=== PATIENT | female | born 1990 | race Caucasian/White ===

== ENCOUNTER 2018-08-20 18:56 | Emergency (ER) | payer MEDICAID, SELFPAY ==
[2018-08-20 19:00] VITALS: BP 115/72; PULSE 88; RESP 20; TEMP 37; O2SAT 99
--- NOTE | 2018-08-20 19:30 | DI.RAD_ITS ---
SYMPTOMS/DIAGNOSIS: ? FOREIGN BODY IN FOOT PAD, STEPPED ON GLASS LEFT FOOT: Three views. No bone or joint abnormality is identified. No radiopaque foreign bodies are present. IMPRESSION: Negative examination.
--- NOTE | 2018-08-20 20:01 | DI.VRAD_ITS ---
EXAM: XR Left Foot Complete, 3 or more Views EXAM DATE/TIME: 08/20/2018 7:17 PM CLINICAL HISTORY: 27 years old, female; Pain; Foot; Left; Patient HX: Stepped on glass on monday and removed glass but now a red line from bottom of foot up through instep. ; Additional info: Arrow on lateral shows where PT removed glass. TECHNIQUE: XR Left foot 3 or more views. COMPARISON: No relevant prior studies available. FINDINGS: Normal alignment. No acute fracture or dislocation. No evidence of osteomyelitis. No radiopaque foreign bodies. IMPRESSION: No acute findings. Dictated and Authenticated by: Nazario Nobles MD. Ordering:MARY Salamanca MD
[2018-08-20] MEDS: LEVOFLOXACIN 500 MG, LEVOFLOXACIN 250 MG 750 MG PO (20:38)
[2018-08-20] MEDS: Cephalexin 500 MG CAP PO (20:38)
--- NOTE | 2018-08-20 20:53 | W.ED.GENAD ---
Discharge Plan Disposition Patient Disposition: HOME Condition: Good Discharge Details Chief Complaint: Cellulitis Clinical Impression: Cellulitis Primary Care Provider: Manuel Bean ED Provider: Cheikh Ayala Home Meds and New Rx's Prescriptions: New cephalexin [Keflex] 500 mg capsule 500 mg PO QID 7 Days Qty: 28 RF: 0 levofloxacin 750 mg tablet 750 mg PO DAILY Qty: 7 RF: 0 No Action levalbuterol tartrate [Xopenex HFA] 15 GM HFA aerosol inhaler 2 puff Inhalation PRN PRNQty: 1 RF: 1 acetaminophen [Tylenol Extra Strength] 500 MG tablet 500 mg PO PRN PRNRF: 0 Ibuprofen 800 MG Tablet 800 mg PO Q8H PRN (Reason: Pain) Qty: 18 RF: 0 Discharge Instructions Instructions: Cellulitis (ED) Additional Instructions: Please take the antibiotic as directed. If you notice any worsening of the redness or increase in your streaking or fever please return immediately. If you notice any pain in your tendons, joints, or ligaments please stop taking the levofloxacin immediately, and consult your primary care provider. If you notice any worsening of your symptoms, or any new symptoms such as vomiting, diarrhea, fever, chills, shortness of breath, chest pain, numbness, weakness, or fainting , please return immediately to the emergency department for reevaluation. Please follow up with your primary care provider as soon as possible for reassessment and reevaluation. As always, it was a pleasure participating in your medical care today. Referrals: Manuel Bean MD [Primary Care Provider] - Discharge Data Discharge Date/Time-TO BE ENTERED AT DEPARTURE: 08/20/18 21:02 Medical Decision Making Is a 27-year-old female whose tetanus is up-to-date who presents today for red streaking in her left foot. She has no red flag risk factors of diabetes or HIV. 3 days ago she stepped on a small piece of glass which she was able to remove, today she noticed a small amount of red streaking that is rapidly progressing towards her ankle. No systemic symptoms of fever, vital signs are stable, and reassuring. Physical exam demonstrates no abscess, fluctuance, or signs of significant infection. With a mild to moderate erythema and a streaking-like fashion we did get a chest x-ray to rule out foreign body that is retained, x-rays negative and shows no evidence of retained foreign body. With a concern for an infectious etiology from the initial glass that she stepped on I will start the patient on antibiotics. Up-to-date does recommend both tianna quinolone administration as well as good gram-positive coverage. We will give Keflex and Levaquin. I do not feel that her signs or symptoms are suggestive of a MRSA infection, and I do not feel that additional coverage with clindamycin and Bactrim is indicated at this time. Had a long discussion with the patient regarding red flags for which to return and a low threshold for return for worsening of her symptoms and she understands. Also discussed the importance of extremely close follow-up and she understands. She will be given her first dose here in the ED tonight, and a prescription to go home. I have extensively reviewed the treatment plan and discharge instructions with the patient and their family. I have addressed all patient concerns at this time. The patient and family was made aware of what symptoms to monitor for that would warrant a return to the emergency department. Discussed the plan with the patient and family, they demonstrate verbal understanding and agreement with our assessment and plan at this time. TECHNIQUE: XR Left foot 3 or more views. COMPARISON: No relevant prior studies available. FINDINGS: Normal alignment. No acute fracture or dislocation. No evidence of osteomyelitis. No radiopaque foreign bodies. IMPRESSION: No acute findings. Dictated and Authenticated by: Nazario Nobles MD. [facility] General Date/Time Provider Initiated Documentation: 08/20/18 19:16. [facility] Narrative: This is a 27-year-old female with no significant past medical history who presents today for evaluation of left foot redness. The patient states that 2 days ago she was walking barefoot her entryway when she stepped on a very small thin piece of glass. She states that she was able to remove the glass completely with tweezers and had no significant pain, however this afternoon she noticed a small amount of redness near where the glass had stuck her foot, and by this evening the redness had spread in a streak-like fashion up her leg to her ankle. She has very mild pain. She denies any systemic symptoms of fever. She does admit to a mild chill though. She denies any significant pain around the ankle or foot. She denies any pain with ambulation. She denies any history of diabetes or HIV. She denies any other modifying factors at this time. Patient states that immunizations are up-to-date, last tetanus was administered in 2013. Related Data Home Medications Medication Instructions Recorded Confirmed levalbuterol tartrate [Xopenex HFA] 2 puff INHALATION PRN PRN #1 05/26/14 08/20/18 inhaler Ibuprofen 800 mg PO Q8H PRN #18 tablet 01/19/17 08/20/18 acetaminophen [Tylenol Extra 500 mg PO PRN PRN 01/19/17 08/20/18 Strength] cephalexin [Keflex] 500 mg PO QID 7 Days #28 cap 08/20/18 levofloxacin 750 mg PO DAILY #7 tab 08/20/18 Previous Rx's Medication Instructions Recorded Ibuprofen 800 mg PO Q8H PRN #18 tablet 01/19/17 cephalexin [Keflex] 500 mg PO QID 7 Days #28 cap 08/20/18 levofloxacin 750 mg PO DAILY #7 tab 08/20/18 Allergies Allergy/AdvReac Type Severity Reaction Status Date / Time codeine [Codeine] Allergy Severe THROAT Unverified 08/20/18 19:03 SWELLS, TROUBLE BREATHING oxycodone AdvReac Intermediate Nausea Unverified 08/20/18 19:03 General Stated Complaint: Cellulitis JEANNINE: 3 Review of Systems Review of Systems All systems reviewed & are unremarkable except as noted in HPI and below PFSH Medical History Asthma Migraine Seasonal allergic rhinitis Surgical History section (06/18/14) Family History Other Personal history of malignant neoplasm Social History Smoking/Tobacco Use Status: Current every day Exam Narrative Exam Narrative: 1.Const: Well-nourished, Well-developed, appearing stated age 2.Eyes: PERRL, no conjunctival injection, and symmetrical lids. 3.ENT: Atraumatic external nose and ears. Moist MM. Neck: Symmetric, trachea midline, No thyromegaly. 4.CVS: +S1/S2, No murmurs or gallops. Peripheral pulses 2+ and equal in all extremities. Brisk capillary refill in all extremities. 5.RESP: Unlabored respiratory effort. Clear to auscultation bilaterally. No wheezes rales or rhonchi 6.GI: Soft, Nontender/Nondistended, No hepatosplenomegaly. No guarding or rebound. 7.MSK: Normocephalic/Atraumatic, Extremities w/o deformity or ttp No cyanosis or clubbing, Normal movement of all extremities. No evidence of retained foreign body, no evidence of significant swelling in the foot. No tenderness on palpation. 8.Skin: Warm, Dry. No rashes or lesions. There is a very small thin erythematous line streaking from the base of the patient's left foot, up around the medial aspect towards the ankle. It stops just distal to the ankle. No firmness, fluctuance, or signs of abscess. 9.Neuro: carpenter inspector II-XII grossly intact. Sensation grossly intact, no focal neurologic deficits. 10.Psych: (AAO) x3. Appropriate mood and affect Course Vital Signs Temperature 37.0 C 08/20/18 19:00 Pulse 88 08/20/18 19:00 Respiratory Rate 20 08/20/18 19:00 Blood Pressure 115/72 08/20/18 19:00 Pulse Oximetry 99 08/20/18 19:00 Temperature 37.0 C 08/20/18 19:00 Temperature Source Temporal Artery Scan 08/20/18 19:00 Pulse 88 08/20/18 19:00 Respiratory Rate 20 08/20/18 19:00 Respiratory Effort Non-Labored 08/20/18 19:00 Blood Pressure 115/72 08/20/18 19:00 Pulse Oximetry 99 08/20/18 19:00 Oxygen Delivery Method Room Air 08/20/18 19:00 Oxygen Flow Rate 0 08/20/18 19:00 Pain Level 4 08/20/18 19:00
== END 2018-08-20 21:02 | disposition home or self-care (01) ==
PROVIDERS: Emergency Provider Student in an Organized Health Care Education/Training Program; PCP General Practice
DX: L03.116 Cellulitis of left lower limb (principal)
CPT/HCPCS: 99283; 73630

== ENCOUNTER 2019-08-14 00:59 | Emergency (ER) | payer MEDICAID, SELFPAY ==
[2019-08-14 01:04] VITALS: BP 126/92; PULSE 78; RESP 16; TEMP 36.6; O2SAT 100
--- NOTE | 2019-08-14 01:17 | ED.GENADUL_ITS ---
Discharge Plan Disposition Patient Disposition: HOME Condition: Good Discharge Details Chief Complaint: Abd Prob Clinical Impression: Gastritis Primary Care Provider: Manuel Bean ED Provider: Cheikh Ayala Home Meds and New Rx's Prescriptions: New sucralfate [Carafate] 1 gram tablet 1 gm PO QACHS Qty: 90 RF: 0 pantoprazole [Protonix] 40 mg tablet,delayed release (DR/EC) 40 mg PO DAILY Qty: 90 RF: 0 Discharge Instructions Instructions: Gastritis (ED) Additional Instructions: At this time I suspect her symptoms are from mild gastric ulcer or gastritis. Please use Pepto-Bismol or Maalox as needed. Please take the Carafate and Protonix to help with the stomach ulcers. Please avoid any spicy foods, citrus- based products, or tomato-based products. If you notice any worsening of your symptoms, or any new symptoms such as vomiting, diarrhea, fever, chills, shortness of breath, chest pain, numbness, weakness, or fainting , please return immediately to the emergency department for reevaluation. Please follow up with your primary care provider as soon as possible for reassessment and reevaluation. As always, it was a pleasure participating in your medical care today. Referrals: Manuel Bean MD [Primary Care Provider] - Medical Decision Making Is a pleasant 28-year-old female presents with epigastric pain started earlier today. Occasionally it would come and go and when it does get worse it radiates to her chest which results in a chest heaviness and what she describes as a notable shortness of breath. It gets better on its own. She states that it feels similar to when she had her gallbladder problems in the past however she has since had a cholecystectomy. She demonstrates no red flags concerning for PE. Vital signs are stable. Get a screening d-dimer, EKG, chest x-ray, give GI cocktail. I suspect symptoms are likely from mild gastric irritation, lung pathology unlikely. ACS unlikely. Pancreatitis is on the differential but lower. No recent alcohol use. 2:24 AM D-dimer negative. The remainder of her laboratory work-up is unremarkable. No white count, lipase normal, transaminases normal. Troponin normal, proBNP normal. On reassessment the patient states that her symptoms are nearly completely resolved specifically after that GI cocktail. She feels much better. I suspect that her symptoms are likely from mild gastritis or gastric ulcer. Symptoms are inconsistent with ACS or PE. This time will we will give antacid medication for home use, recommend appropriate diet and close follow-up. Discussed red flags which to return. I have extensively reviewed the treatment plan and discharge instructions with the patient. I have addressed all patient concerns at this time. The patient was made aware of what symptoms to monitor for that would warrant a return to the emergency department. Discussed the plan with the patient, they demonstrate verbal understanding and agreement with our assessment and plan at this time. EKG 1: 18 Rate 84, intervals normal, sinus rhythm, no significant ST elevations or depre ssions, inverted T wave is present in V1. No evidence of STEMI. No other abnormalities. FINDINGS: Lungs: Unremarkable. No consolidation. Pleural space: Unremarkable. No pleural effusion. No pneumothorax. Heart/Mediastinum: Unremarkable. No cardiomegaly. Bones/joints: Unremarkable. IMPRESSION: No acute findings. Thank you for allowing us to participate in the care of your patient. Dictated and Authenticated by: Shashank Peguero MD 08/14/2019 1:45 AM Eastern Time ([place] & [place]) HPI General Date/Time Provider Initiated Documentation: 08/14/19 01:02 . HPI Narrative: This is a 28-year-old female with no significant past medical history who presents today for evaluation of epigastric pain and chest tightness. Patient states that starting earlier today she had mild epigastric irritation which she describes as an achy-like sensation however throughout the day the pain seems to come and gone significantly worsening causing which she describes as a notable chest heaviness, tightness and shortness of breath. This seems to go away without any activity in particular. She denies any exertional component. She has been eating some food today which is not aggravated or relieved her symptoms. States that she has had some pain similar to this in the past when she had her gallstones, however she has had a cholecystectomy. She denies any other complaints at this time. No other modifying factors. Denies PE risk factors such as recent long car rides, immobilization, recent surgery, prior history of DVT or PE, family history of PE or DVT, morbid obesity, exogenous estrogen, hemoptysis, history of cancer. Related Data Home Medications Medication Instructions Recorded Confirmed pantoprazole [Protonix] 40 mg PO DAILY #90 tab 08/14/19 sucralfate [Carafate] 1 gm PO QACHS #90 tab 08/14/19 Previous Rx's Medication Instructions Recorded pantoprazole [Protonix] 40 mg PO DAILY #90 tab 08/14/19 sucralfate [Carafate] 1 gm PO QACHS #90 tab 08/14/19 Allergies Allergy/AdvReac Type Severity Reaction Status Date / Time codeine [Codeine] Allergy Severe THROAT Unverified 08/14/19 01:06 SWELLS, TROUBLE BREATHING oxycodone AdvReac Intermediate Nausea Unverified 08/14/19 01:06 General Stated Complaint: Abd Prob JEANNINE: 3 Review of Systems All systems reviewed & are unremarkable except as noted in HPI and below PFSH Medical History (Updated 07/21/14 @ 10:57 by Porsha Petersen) Asthma Migraine Seasonal allergic rhinitis uses inhaler Surgical History (Updated 05/30/18 @ 14:35 by [employer] [place]) section (06/18/14) LTCS/aoc. IOL for post dates at 40w4d breech presentation noted in labor. F. 6lb 7.9oz. 'Sujata'. Family History (Updated 01/05/14 @ 21:19 by ) Other Personal history of malignant neoplasm Social History Smoking/Tobacco Use Status: Current every day Alcohol Intake: current Alcohol Intake frequency: holidays/special occasions only Drug use: Occasionally Substance use type: marijuana Do you feel safe at home: Yes Do you feel safe in your relationship?: Yes Exam Narrative Exam Narrative: 1.Const: Well-nourished, Well-developed, appearing stated age 2.Eyes: PERRL, no conjunctival injection, and symmetrical lids. 3.ENT: Atraumatic external nose and ears. Moist MM. Neck: Symmetric, trachea midline, No thyromegaly. 4.CVS: +S1/S2, No murmurs or gallops. Peripheral pulses 2+ and equal in all extremities. Brisk capillary refill in all extremities. 5.RESP: Unlabored respiratory effort. Clear to auscultation bilaterally. No wheezes rales or rhonchi 6.GI: Soft, Nondistended, No hepatosplenomegaly. No guarding or rebound. Mild epigastric tenderness. No reproducible chest wall tenderness. No pain at McBurney's point, negative Mcgill sign. 7.MSK: Normocephalic/Atraumatic, Extremities w/o deformity or ttp No cyanosis or clubbing, Normal movement of all extremities radial pulses +2 and equal bilaterally. 8.Skin: Warm, Dry. No rashes or lesions. 9.Neuro: dough sheeter II-XII grossly intact. Sensation grossly intact, no focal neurologic deficits. 10.Psych: (AAO) x3. Appropriate mood and affect Course Vital Signs Vital signs: Vital Signs Temperature 36.6 C 08/14/19 01:04 Pulse 78 08/14/19 01:04 Respiratory Rate 16 08/14/19 01:04 Blood Pressure 126/92 H 08/14/19 01:04 Pulse Oximetry 100 08/14/19 01:04 Temperature 36.6 C 08/14/19 01:04 Temperature Source Temporal Artery Scan 08/14/19 01:04 Pulse 78 08/14/19 01:04 Respiratory Rate 16 08/14/19 01:04 Respiratory Effort Non-Labored 08/14/19 01:04 Blood Pressure 126/92 H 08/14/19 01:04 Blood Pressure Position Sitting 08/14/19 01:04 Pulse Oximetry 100 08/14/19 01:04 Oxygen Delivery Method Room Air 08/14/19 01:04 Oxygen Flow Rate 0 08/14/19 01:04 Pain Level 7 08/14/19 01:04
[2019-08-14 01:19] LABS: Abs Immature Grans 0.01 k/cumm (0.0-0.09); Absolute Basophil Count 0.01 k/cumm (0.0-0.2); Absolute Eosinophil Count 0.12 k/cumm (0.0-0.7); Absolute Lymphocyte Count 1.12 k/cumm (1.2-3.4); Absolute Monocyte Count 0.59 k/cumm (0.11-0.7); Absolute Neutrophil Count 4.54 k/cumm (1.2-6.7); Basophils % 0.2; Eosinophils % 1.9; HGB 13.7 g/dL (12.0-15.5); Immature Grans % 0.2; Lymphocytes % 17.5; Mean Corp. HGB Concentration 34.3 g/dL (32.0-36.0); Mean Corpuscular Hemoglobin 30.7 pg (27.0-33.0); Mean Corpuscular Volume 89.7 fL (80-95); Mean Platelet Volume 9.4 fL (8.0-11.0); Monocytes % 9.2; Platelet Count 225 x1000/uL (130-400); RBC 4.46 m/cumm (4.00-5.20); RBC Distribution Width 12.6 % (11.7-14.6); White Blood Cell Count 6.39 k/cumm (4.4-10.8)
--- NOTE | 2019-08-14 01:22 | DI.RAD_ITS ---
EXAM: XR CHEST 2V PA LATERAL XR CHEST 2V PA LATERAL CLINICAL HISTORY: epigastric and CP w/ SOB epigastric and CP w/ SOB TECHNIQUE: 2D digital imaging was performed. COMPARISON: No exams were available for comparison FINDINGS: The heart is not enlarged. The lungs are clear and well expanded. No pleural effusion seen. Mediastin al contours appear intact. IMPRESSION: Normal chest
[2019-08-14] MEDS: Ondansetron 4 MG/2 ML VIAL IVP (01:24)
[2019-08-14] MEDS: Normal Saline 1,000 ML 1000 ML IV (01:24)
[2019-08-14 01:40] LABS: ALT 23 U/L (14-59); AST 24 U/L (15-37); Albumin 3.9 g/dL (3.4-5.0); Alkaline Phosphatase 72 U/L (46-116); BUN 14 mg/dL (7-18); Bilirubin, Total 0.5 mg/dL (0.2-1.0); CREATININE 0.78 mg/dL (0.55-1.02); Calcium 9.3 mg/dL (8.5-10.1); Chloride 100 mmol/L (98-107); Glucose 102 mg/dL (74-106); Lipase 351 U/L (73-393); NT-proBNP 35 pg/mL (<300); Potassium 3.4 mmol/L (3.5-5.1); Sodium 139 mmol/L (136-145); Total Protein 8.3 g/dL (6.4-8.2); Troponin I < 0.05 ng/Ml (<0.06)
--- NOTE | 2019-08-14 01:45 | DI.VRAD_ITS ---
PROCEDURE INFORMATION: Exam: XR Chest, 2 Views Exam date and time: 08/14/2019 1:27 AM Age: 28 years old Clinical indication: Shortness of breath; Other: Epigastric and chest pain; Patient HX: Epigastric pain, SOB, nausea TECHNIQUE: Imaging protocol: XR of the chest Views: 2 views. COMPARISON: No relevant prior studies available. FINDINGS: Lungs: Unremarkable. No consolidation. Pleural space: Unremarkable. No pleural effusion. No pneumothorax. Heart/Mediastinum: Unremarkable. No cardiomegaly. Bones/joints: Unremarkable. IMPRESSION: No acute findings. Dictated and Authenticated by: Shashank Peguero MD. Ordering:MARY Salamanca MD
[2019-08-14 02:10] LABS: D-Dimer 436 ng/mlFEU (<500)
== END 2019-08-14 02:35 | disposition home or self-care (01) ==
LOC: ER 02:35
PROVIDERS: Emergency Provider Student in an Organized Health Care Education/Training Program; PCP General Practice
DX: K29.70 Gastritis, unspecified, without bleeding (principal)
CPT/HCPCS: 80053; 83690; 93005; 96361; 96374; 99284; 71046; 83880; 84484; 85025; 85379; 93010; J2405

== ENCOUNTER 2020-04-29 16:34 | Outpatient (REF) | payer MEDICAID, SELFPAY ==
--- NOTE | 2020-04-29 15:30 | PAPFT_PTH ---
PATIENT: Ginny Jacobs LOC: [facility] U#:[id number] AGE/SX: 29/F ROOM: RE04/29/[address]: Doinne Cline : 1990 BED: DIS: 04/29/2020 SPEC #: [id number] RECD: 04/30/20 13:13 STATUS: TERESITA REQ #: [id number] RUPA: 04/29/20 15:[address]: iDonne Cline DEPT: [facility] Cytology RECD BY: Amairani Mckeon ENTERED: 04/30/20 13:13 SP TYPE: PAPFT OTHR DR: Manuel Bean Tissues: 1 - CX/ENDOCX FOR PAP SMEARS Procedures: PAP THIN PREP/[facility] Screening HPV DNA PROBE Comments: [id number]
== END 2020-04-29 16:54 ==
LOC: LBN 16:34
PROVIDERS: PCP General Practice; Visit Provider Obstetrics & Gynecology Gynecology
DX: Z12.4 Encounter for screening for malignant neoplasm of cervix (principal); Z11.51 Encounter for screening for human papillomavirus (HPV); R87.612 Low grade squamous intraepithelial lesion on cytologic smear of cervix (LGSIL)
CPT/HCPCS: 88142; 87624

== ENCOUNTER 2020-05-29 13:06 | Outpatient (CLI) | payer MEDICAID, SELFPAY ==
[2020-06-01 07:12] LABS: Patient Race White; SARS-CoV-2 RNA Undetected (Undetected); SARS-CoV-2 Specimen Source Nasopharynx
== END 2020-05-29 13:26 ==
PROVIDERS: Visit Provider Family Medicine
DX: Z11.59 Encounter for screening for other viral diseases (principal)
CPT/HCPCS: U0003

== ENCOUNTER 2020-12-04 10:56 | Outpatient (CLI) | payer MEDICAID, SELFPAY ==
[2020-12-05 12:21] LABS: COVID-19 RT-PCR UVMMC Result Negative (Negative)
== END 2020-12-04 10:57 | disposition home or self-care (01) ==
LOC: LBO 10:57
PROVIDERS: Pediatrics
DX: Z20.822 Contact with and (suspected) exposure to COVID-19 (principal)
CPT/HCPCS: U0003

== ENCOUNTER 2020-12-08 02:59 | Outpatient (CLI) | payer MEDICAID, SELFPAY ==
[2020-12-09 13:33] LABS: COVID-19 RT-PCR UVMMC Result Negative (Negative)
== END 2020-12-08 03:00 | disposition home or self-care (01) ==
LOC: LBO 02:59
PROVIDERS: Visit Provider Pediatrics
DX: Z20.822 Contact with and (suspected) exposure to COVID-19 (principal)
CPT/HCPCS: U0003

== ENCOUNTER 2021-06-09 15:01 | Outpatient (REF) | payer MEDICAID, SELFPAY ==
--- NOTE | 2021-06-09 14:15 | ENDO_PTH ---
PATIENT: Ginny Jacobs LOC: [facility]#:[id number] AGE/SX: 30/F ROOM: RE06/09/[address]: Dionne Cline : 1990 BED: DIS: 06/09/2021 SPEC #: [id number] RECD: 06/09/21 16:54 STATUS: TERESITA REQ #: [id number] RUPA: 06/09/21 14:[address]: Dionne Cline DEPT: Surgical Specimen RECD BY: Amairani Mckeon ENTERED: 06/09/21 16:55 SP TYPE: Endo OTHR DR: No Local Tissues: 1 - ENDOCERVICAL BX/CURRETTE 2 - CERVICAL BIOPSY Procedures: GROSS AND MICRO LEVEL 4 Comments: [id number]
== END 2021-06-09 15:02 | disposition home or self-care (01) ==
LOC: LBN 15:01
PROVIDERS: Visit Provider Obstetrics & Gynecology Gynecology
DX: N87.9 Dysplasia of cervix uteri, unspecified (principal)
CPT/HCPCS: 88305

== ENCOUNTER 2022-04-28 11:19 | Emergency (ER) | payer MEDICAID, SELFPAY ==
[2022-04-28 11:26] VITALS: BP 143/78; PULSE 81; RESP 18; TEMP 36.6; O2SAT 100
--- NOTE | 2022-04-28 11:30 | DI.RAD_ITS ---
Exam(s) XR SHOULDER RT COMPLETE 2+V EXAM: XR SHOULDER RT COMPLETE 2+V CLINICAL HISTORY: fall, injury. TECHNIQUE: 2D digital imaging was performed of the right shoulder. Five images were obtained. AP, Grashey, Y-view and axillary views were obtained. COMPARISON: No exams were available for comparison FINDINGS: BONES: No acute fracture is present. No bony destructive lesion is seen. JOINTS: No dislocation present. SOFT TISSUE: Normal. IMPRESSION: Unremarkable radiographs of the right shoulder. DATA REPOSITORY: RADIATION DOSE DELIVERED:
--- NOTE | 2022-04-28 11:30 | DI.RAD_ITS ---
Exam(s) XR CLAVICLE RT EXAM: XR CLAVICLE RT CLINICAL HISTORY: right clavicle injury TECHNIQUE: 2D digital imaging was performed of the right clavicle. Two images were obtained. AP and axial views were obtained. COMPARISON: No exams were available for comparison FINDINGS: BONES: No acute fracture is present. No bony destructive lesion is seen. JOINTS: No dislocation present. SOFT TISSUE: Normal IMPRESSION: Unremarkable radiographs of the right clavicle. DATA REPOSITORY: RADIATION DOSE DELIVERED:
--- NOTE | 2022-05-01 09:29 | W.ED.GENAD ---
Discharge Plan Disposition Patient Disposition: HOME Condition: Stable Discharge Details Clinical Impression: Injury of shoulder Primary Care Provider: Jonelle,[facility] ED Provider: Amairani George Home Meds and New Rx's Prescriptions: New cyclobenzaprine 10 mg tablet 10 mg PO Q8H Qty: 10 0RF Discharge Instructions Instructions: Shoulder Sprain (ED) Additional Instructions: Take ibuprofen and Tylenol as needed for pain You may take Flexeril for pain uncontrolled with ibuprofen and Tylenol, do not drive for 8 hours after taking this medication be reassessed In 2 weeks with persistent pain by your PCP and return earlier should you have new or worsening complaints Use shoulder as tolerated Discharge Data Discharge Date/Time-TO BE ENTERED AT DEPARTURE: 04/28/22 12:50 Medical Decision Making Negative x-ray per radiology interpretation my review supplied with sling Ibuprofen and Tylenol prn pain Return precautions discussed and patient Medical Records Medical records reviewed: Yes I reviewed the patient's medical records. Lab Data Lab results reviewed: Yes I reviewed the patient's lab results. HPI General Date/Time Provider Initiated Documentation: 04/28/22 11:37. HPI Narrative: This 31-year-old female presents for report of pain to her right shoulder a week ago. She states she tripped over her pet dog's leash. She landed on her right shoulder. She denies any head injury or any additional complaints. She has not been evaluated since the event occurred. She has pain with range of motion of her shoulder reportedly. Related Data Home Medications Medication Instructions Recorded Confirmed cyclobenzaprine 10 mg tablet 10 mg PO Q8H #10 tabs 04/28/22 Previous Rx's Medication Instructions Recorded cyclobenzaprine 10 mg tablet 10 mg PO Q8H #10 tabs 04/28/22 Allergies Allergy/AdvReac Type Severity Reaction Status Date / Time codeine [Codeine] Allergy Severe THROAT Unverified 04/28/22 11:31 SWELLS, TROUBLE BREATHING oxycodone AdvReac Intermediate Nausea Unverified 04/28/22 11:31 General Stated Complaint: Orthopedic JEANNINE: 4 Review of Systems All systems reviewed & are unremarkable except as noted in HPI and below PFSH All Active Problems (Updated 05/07/20 @ 14:01 by Dionne Cline MD) Injury of shoulder (Acute) Abnormal Pap smear of cervix (Acute) 2019. LGSIL. 05/2021:Colpo directed bx. Menses, irregular (Acute) Postcoital bleeding (Acute) History of cholecystectomy (Chronic) Tobacco use (Acute) Heavy menstrual bleeding (Acute) Gallstone pancreatitis (Acute 07/18/14) Asthma (Chronic) H/O surgical procedure (Chronic) a. for breech presentation 06/2014 Medical History (Updated 04/28/22 @ 12:34 by EPHRAIM Modi) Asthma Migraine Seasonal allergic rhinitis uses inhaler Surgical History (Updated 05/07/20 @ 14:01 by Dionne Cline MD) section (06/18/14) LTCS/aoc. IOL for post dates at 40w4d breech presentation noted in labor. F. 6lb 7.9oz. 'Sujata'. Family History (Updated 05/07/20 @ 13:50 by Dionne Cline MD) Mother No problems noted. Other Personal history of malignant neoplasm Social History (Updated 05/07/20 @ 13:54 by Dionne Cline MD) Smoking/Tobacco Use Status: Current every day Smoking risk assessment performed?: Yes Alcohol Intake: current Alcohol Intake frequency: holidays/special occasions only Drug use: Occasionally Substance use type: marijuana Household members: significant other, children and other Details: BF-Jake. 2 sons. D-Sujata Number of Children: 3 current occupation: Private care in [place] Do you feel safe at home: Yes Do you feel safe in your relationship?: Yes Female Reproductive History Menstrual Duration of menses: 6-7 days (Patient reports heavy with associated cramping) control method: permanent sterilization (BTL at time of delivery) History History 5 Para 3 Hx # Term Pregnancies 3 Multiple births Hx # Pregnancies Ectopic pregnancies AB induced Hx Number of Living Children 3 AB spontaneous 2 Exam Const General: cooperative and comfortable Orientation: alert and oriented x3 Chest Chest: normal inspection of the chest Resp Effort & Inspection: normal respiratory effort Cardio Rate: regular rate Skin General skin exam: no rashes or lesions noted Neuro General: patient alert and patient oriented x3 Extrem Shoulder/upper arm images: 1. tenderness with palpation Other: neurovascularly intact, no tenderness to right elbow Course Vital Signs Vital signs: Vital Signs Temperature 36.6 C 04/28/22 11:26 Pulse 81 04/28/22 11:26 Respiratory Rate 18 04/28/22 11:26 Blood Pressure 143/78 H 04/28/22 11:26 Pulse Oximetry 100 04/28/22 11:26 Temperature 36.6 C 04/28/22 11:26 Pulse 81 04/28/22 11:26 Respiratory Rate 18 04/28/22 11:26 Respiratory Effort Non-Labored 04/28/22 11:29 Blood Pressure 143/78 H 04/28/22 11:26 Blood Pressure Position Sitting 04/28/22 11:26 Pulse Oximetry 100 04/28/22 11:26 Oxygen Delivery Method Room Air 04/28/22 11:26 Oxygen Flow Rate 0 04/28/22 11:26 Pain Level 8 04/28/22 11:32
== END 2022-04-28 12:50 | disposition home or self-care (01) ==
PROVIDERS: Emergency Provider Physician Assistant
DX: S49.91XA Unspecified injury of right shoulder and upper arm, initial encounter (principal); F17.200 Nicotine dependence, unspecified, uncomplicated; W01.0XXA Fall on same level from slipping, tripping and stumbling without subsequent striking against object, initial encounter
CPT/HCPCS: 99284; 73000; 73030

== ENCOUNTER 2023-09-27 23:45 | Emergency (ER) | payer MEDICAID, SELFPAY ==
--- NOTE | 2023-09-27 23:45 | RT.EKG_ITS ---
APPROVED REPORT Exam: Resting ECG Reason for Exam: LOC Patient Location: E HR:87 bpm ECG Measurements Heart Rate 87 AXIS AR 182 P 64 QRSd 82 QRS 32 QT 372 T 42 QTc 448 Conclusion Sinus rhythm...normal P axis, V-rate 60- [address] segment or T wave abnormalities to suggest occlusive OK.
[2023-09-27 23:48] VITALS: BP 145/90; PULSE 104; RESP 13; O2SAT 99
[2023-09-27 23:49] VITALS: BP 145/90; PULSE 104; PULSE 106; RESP 15; O2SAT 99
[2023-09-27 23:50] VITALS: PULSE 105; RESP 13; O2SAT 99
[2023-09-27 23:52] VITALS: RESP 13
--- NOTE | 2023-09-27 23:54 | ED.GENADUL_ITS ---
HPI General Mode of arrival: wheelchair . Date/Time Provider Initiated Documentation: 09/27/23 23:49 . Limitations to Documentation: altered mental status . HPI Narrative: 32-year-old female dropped off to the ER by private vehicle from friend who was not breathing and was blue. Patient was given Narcan by EMS prior to entering the ER nasally. She was [id number] assisted with respirations upon initial presentation. Close or cut off, no signs of trauma noted. Patient did open eyes states states that she is hot. She is tachycardic upon arrival initially, initial respirations less than 10. Labored breathing. Related Data Home Medications Medication Instructions Recorded Confirmed cyclobenzaprine 10 mg tablet 10 mg PO Q8H #10 tabs 04/28/22 Previous Rx's Medication Instructions Recorded cyclobenzaprine 10 mg tablet 10 mg PO Q8H #10 tabs 04/28/22 Allergies Allergy/AdvReac Type Severity Reaction Status Date / Time codeine [Codeine] Allergy Severe THROAT Unverified 04/28/22 11:31 SWELLS, TROUBLE BREATHING oxycodone AdvReac Intermediate Nausea Unverified 04/28/22 11:31 General Stated Complaint: GenMedical JEANNINE: 2 Course Vital Signs Vital signs: Vital Signs Pulse 104 H 09/27/23 23:48 Respiratory Rate 13 09/27/23 23:48 Blood Pressure 145/90 H 09/27/23 23:48 Pulse Oximetry 99 09/27/23 23:48 Pulse 104 H 09/27/23 23:48 Respiratory Rate 13 09/27/23 23:48 Blood Pressure 145/90 H 09/27/23 23:48 Pulse Oximetry 99 09/27/23 23:48 Oxygen Delivery Method Nasal Cannula 09/27/23 23:48 Oxygen Flow Rate 4 09/27/23 23:48 Medical Decision Making Workup ordered including salicylate Tylenol UDS, urine EKG and as needed Narcan. Assumed overdose. Quality:SDOH Health Related Social Needs: No Data to Display PFSH All Active Problems (Updated 05/07/20 @ 14:01 by Dionne Cline MD) Abnormal Pap smear of cervix (Acute) 2019. LGSIL. 05/2021:Colpo directed bx. Menses, irregular (Acute) Postcoital bleeding (Acute) History of cholecystectomy (Chronic) Tobacco use (Acute) Heavy menstrual bleeding (Acute) Gallstone pancreatitis (Acute 07/18/14) Asthma (Chronic) H/O surgical procedure (Chronic) a. for breech presentation 06/2014 Medical History (Updated 05/29/22 @ 00:06 by SIMI BOYD) Asthma Seasonal allergic rhinitis uses inhaler Migraine Surgical History (Updated 05/07/20 @ 14:01 by Dionne Cline MD) section (06/18/14) LTCS/aoc. IOL for post dates at 40w4d breech presentation noted in labor. F. 6lb 7.9oz. 'Sujata'. Family History (Updated 05/07/20 @ 13:50 by Dionne Cline MD) Mother No problems noted. Other Personal history of malignant neoplasm Social History (Updated 05/07/20 @ 13:54 by Dionne Cline MD) Smoking/Tobacco Use Status: Current every day Smoking risk assessment performed?: Yes Alcohol Intake: current Alcohol Intake frequency: holidays/special occasions only Drug use: Occasionally Substance use type: marijuana Household members: significant other, children and other Details: BF-Jake. 2 sons. D-Sujata Number of Children: 3 current occupation: Private care in [place] Do you feel safe at home: Yes Do you feel safe in your relationship?: Yes Female Reproductive History Menstrual Duration of menses: 6-7 days (Patient reports heavy with associated cramping) control method: permanent sterilization (BTL at time of delivery) History History 5 Para 3 Hx # Term Pregnancies 3 Multiple births Hx # Pregnancies Ectopic pregnancies AB induced Hx Number of Living Children 3 AB spontaneous 2 Discharge Plan Discharge Details Chief Complaint: GenMedical Primary Care Provider: No,Local ED Provider: Provider,Temporary Home Meds and New Rx's Prescriptions: No Action cyclobenzaprine 10 mg tablet 10 mg PO Q8H Qty: 10 0RF
--- NOTE | 2023-09-27 23:59 | ED.GENADUL_ITS ---
HPI General Date/Time Provider Initiated Documentation: 09/27/23 23:49 . Limitations to Documentation: no limitations . HPI Narrative: 32yo F arrives in private vehicle unresponsive and not breathing. Related Data Home Medications Medication Instructions Recorded Confirmed cyclobenzaprine 10 mg tablet 10 mg PO Q8H #10 tabs 04/28/22 naloxone 4 mg/actuation nasal 4 mg intranasal Q2M PRN #2 ea 09/28/23 spray (Narcan) Previous Rx's Medication Instructions Recorded cyclobenzaprine 10 mg tablet 10 mg PO Q8H #10 tabs 04/28/22 naloxone 4 mg/actuation nasal 4 mg intranasal Q2M PRN #2 ea 09/28/23 spray (Narcan) Allergies Allergy/AdvReac Type Severity Reaction Status Date / Time codeine [Codeine] Allergy Severe THROAT Unverified 04/28/22 11:31 SWELLS, TROUBLE BREATHING oxycodone AdvReac Intermediate Nausea Unverified 04/28/22 11:31 General Stated Complaint: GenMedical JEANNINE: 4 Review of Systems Unobtainable due to mental status Exam Narrative Exam Narrative: General: Unresponsive. Cyanotic. Head: Normocephalic, atraumatic Neck: Trachea midline, ?Neck supple. Cardiac: ?Tachycardiac, regular Resp: Apneic. Abd: ?Soft, non-distended, nontender Extremities: ?No deformities.? No peripheral edema. Neurologic: Pinpoint pupils. Course Vital Signs Vital signs: Vital Signs Pulse 104 H 09/27/23 23:48 Respiratory Rate 13 09/27/23 23:48 Blood Pressure 145/90 H 09/27/23 23:48 Pulse Oximetry 99 09/27/23 23:48 Pulse 104 H 09/27/23 23:49 Pulse 105 H 09/27/23 23:50 Respiratory Rate 13 09/27/23 23:52 Respiratory Effort Agonal 09/27/23 23:52 Respiratory Pattern Apnea 09/27/23 23:52 Blood Pressure 145/90 H 09/27/23 23:49 Blood Pressure Mean 110 09/27/23 23:49 Pulse Oximetry 99 09/27/23 23:50 Oxygen Delivery Method Nasal Cannula 09/27/23 23:48 Oxygen Flow Rate 4 09/27/23 23:48 Medical Decision Making 32yo F arrives in private vehicle unresponsive and not breathing. ED nurses and physician out to car where patient was found unresponsive, not breathing, cyanotic, did have good pulse. EMS was present outside department after transporting another patient to the ED and assisted in bringing patient back to room; administered intranasal Narcan as patient being wheeled back. Pinpoint pupils on exam. Ventilated with BVM for approximately 30 seconds then became responsive. Vital signs obtained at that time; mildly hypertensive and tachycardiac. EKG NSR, appropriate intervals, no ischemic changes Labs reviewed as below, CBC & CMP reassuring with no significant abnormalities, serum tox negative. On reassessment patient nauseated; given zofran. She states that she smoked some weed, denies any opiate ingestion. It hit different immediately after she smoked it, thinks something else was in hit. Denies any attempt to self harm. Was otherwise in her usual state of health before this event. Re quests discharge home. I discussed with Ms. Jacobs my strong recommendation that she remain in the ED for further observation should whatever she ingested be longer lasting than the narcan she was given as she could stop breathing and as she came very close to doing just a few hours ago. She verbalized understanding of my concerns, states that she hates hospitals as her significant other fairly recently, and is adamant that she wants to go home. I have no indication to hold her against her will. She states her sister who will pick her up has Narcan available at home and will remain with her overnight. A prescription for additional narcan was sent to her pharmacy. Left against medical advice; discharge instructions and return precautions were reviewed with patient who verbalized understanding; all questions were answered. Lab Data Lab results reviewed: Yes I reviewed the patient's lab results. Labs: Laboratory Tests Range/Units 09/27/23 23:50 WBC (4.4-10.8) 10^3/uL 10.58 RBC (3.93-5.22) 10^6/uL 4.37 Hgb (11.2-15.7) g/dL 12.3 Hct (36.0-46.0) % 38.6 MCV (80-95) fL 88 MCH (27.0-33.0) pg 28.1 MCHC (32.0-36.0) % 31.9 L RDW (11.7-14.6) % 14.5 Plt Count (130-400) 10^3/uL 319 MPV (8.0-11.0) fL 10.0 Immature Gran % 0.3 Neutrophils % 56.9 Lymphocytes % 32.8 Monocytes % 8.1 Eosinophils % 1.4 Basophils % 0.5 Nucleated RBC % (0.0-0.3) % 0.0 Absolute Neutrophils (1.2-6.7) 10^3/uL 6.02 Absolute Lymphocytes (1.2-3.4) 10^3/uL 3.47 H Absolute Monocytes (0.1-0.8) 10^3/uL 0.86 H Absolute Eosinophils (0.0-0.7) 10^3/uL 0.15 Absolute Basophils (0.0-0.2) 10^3/uL 0.05 Sodium (136-145) mmol/L 141 Potassium (3.5-5.1) mmol/L 3.5 Chloride (98-107) mmol/L 105 Carbon Dioxide (21.0-32.0) mmol/L 24.7 Anion Gap (3-11) mmol/L 11.3 H BUN (7-18) mg/dL 17 Creatinine (0.55-1.02) mg/dL 0.9 Est GFR (CKD-EPI 2020) (mL/min/1.73m2) 86.57 Glucose (74-106) mg/dL 164 H Calcium (8.5-10.1) mg/dL 8.5 Magnesium (1.8-2.4) mg/dL 1.9 Total Bilirubin (0.2-1.0) mg/dL 0.1 L AST (15-37) U/L 16 ALT (14-59) U/L 15 Alkaline Phosphatase (46-116) U/L 88 Troponin I (< or =60) ng/L < 50 Total Protein (6.4-8.2) g/dL 7.8 Albumin (3.4-5.0) g/dL 3.4 Salicylates (<2.8) mg/dL 5.0 Acetaminophen (10-30) ug/mL < 2 Ethyl Alcohol (<10) mg/dL < 3.0 Quality:SDOH Health Related Social Needs: No Data to Display PFSH All Active Problems (Updated 05/07/20 @ 14:01 by Dionne Cline MD) Overdose (Acute) Abnormal Pap smear of cervix (Acute) 2019. LGSIL. 05/2021:Colpo directed bx. Menses, irregular (Acute) Postcoital bleeding (Acute) History of cholecystectomy (Chronic) Tobacco use (Acute) Heavy menstrual bleeding (Acute) Gallstone pancreatitis (Acute 07/18/14) Asthma (Chronic) H/O surgical procedure (Chronic) a. for breech presentation 06/2014 Medical History (Updated 09/28/23 @ 02:03 by Kristen Suarez MD) Asthma Seasonal allergic rhinitis uses inhaler Migraine Surgical History (Updated 05/07/20 @ 14:01 by Dionne Cline MD) section (06/18/14) LTCS/aoc. IOL for post dates at 40w4d breech presentation noted in labor. F. 6lb 7.9oz. 'Sujata'. Family History (Updated 05/07/20 @ 13:50 by Dionne Cline MD) Mother No problems noted. Other Personal history of malignant neoplasm Social History (Updated 05/07/20 @ 13:54 by Dionne Cline MD) Smoking/Tobacco Use Status: Current every day Smoking risk assessment performed?: Yes Alcohol Intake: current Alcohol Intake frequency: holidays/special occasions only Drug use: Occasionally Substance use type: marijuana Household members: significant other, children and other Details: BF-Jake. 2 sons. D-Sujata Number of Children: 3 current occupation: Private care in remission Do you feel safe at home: Yes Do you feel safe in your relationship?: Yes Female Reproductive History Menstrual Duration of menses: 6-7 days (Patient reports heavy with associated cramping) control method: permanent sterilization (BTL at time of delivery) History History 5 Para 3 Hx # Term Pregnancies 3 Multiple births Hx # Pregnancies Ectopic pregnancies AB induced Hx Number of Living Children 3 AB spontaneous 2 Discharge Plan Disposition Patient Disposition: Against Medical Advice Condition: Good Discharge Details Clinical Impression: Overdose Primary Care Provider: Jonelle,[facility] ED Provider: Kristen Suarez Home Meds and New Rx's Prescriptions: New naloxone [Narcan] 4 mg/actuation spray,non-aerosol 4 mg intranasal Q2M PRNQty: 2 0RF Rx Instructions: spray 1 dose into ONE nostril; alternate nostrils w each dose until help arrives Continued cyclobenzaprine 10 mg tablet 10 mg PO Q8H Qty: 10 0RF Discharge Instructions Instructions: Opioid Use Disorder (ED) Additional Instructions: We would like you to be observed in the ED but you have chose to leave. Make sure someone around you tonight has Narcan. You will not be able to use it on yourself. Return to the emergency department for new or worsening symptoms.
[2023-09-28] VITALS (21 sets, daily range): BP systolic 125–138; BP diastolic 59–98; PULSE 83–115; RESP 11–24; O2SAT 99–100
[2023-09-28 00:04] LABS: Abs Immature Grans 0.03 10^3/uL (0.0-0.06); Absolute Basophil Count 0.05 10^3/uL (0.0-0.2); Absolute Eosinophil Count 0.15 10^3/uL (0.0-0.7); Absolute Lymphocyte Count 3.47 10^3/uL (1.2-3.4); Absolute Monocyte Count 0.86 10^3/uL (0.1-0.8); Absolute Neutrophil Count 6.02 10^3/uL (1.2-6.7); Basophils % 0.5; Eosinophils % 1.4; HCT 38.6 % (36.0-46.0); HGB 12.3 g/dL (11.2-15.7); Immature Grans % 0.3; Lymphocytes % 32.8; MCH 28.1 pg (27.0-33.0); MCHC 31.9 % (32.0-36.0); MCV 88 fL (80-95); Monocytes % 8.1; Neutrophils % 56.9; Platelet Count 319 10^3/uL (130-400); RBC 4.37 10^6/uL (3.93-5.22); RDW 14.5 % (11.7-14.6); WBC 10.58 10^3/uL (4.4-10.8)
[2023-09-28 00:21] LABS: ALT 15 U/L (14-59); AST 16 U/L (15-37); Albumin 3.4 g/dL (3.4-5.0); Alkaline Phosphatase 88 U/L (46-116); Anion Gap 11.3 mmol/L (3-11); BUN 17 mg/dL (7-18); Bilirubin, Total 0.1 mg/dL (0.2-1.0); CO2 24.7 mmol/L (21.0-32.0); CREATININE 0.9 mg/dL (0.55-1.02); Calcium 8.5 mg/dL (8.5-10.1); Chloride 105 mmol/L (98-107); Estimated GFR 86.57 (mL/min/1.73m2); Glucose 164 mg/dL (74-106); Magnesium 1.9 mg/dL (1.8-2.4); Potassium 3.5 mmol/L (3.5-5.1); Sodium 141 mmol/L (136-145); Total Protein 7.8 g/dL (6.4-8.2)
[2023-09-28 00:24] LABS: Troponin I < 50 ng/L (< or =60)
[2023-09-28 00:26] LABS: ETHANOL BLOOD < 3.0 mg/dL (<10)
[2023-09-28 00:41] LABS: Acetaminophen < 2 ug/mL (10-30)
--- NOTE | 2023-09-28 02:06 | NUR.NOTE ---
PT refused urine sample Nursing Note:
[2023-09-28] MEDS: Ondansetron O.D.T. 4 MG TABEF (02:11)
--- NOTE | 2023-09-28 02:12 | NUR.NOTE ---
on the way out of the ED PT became nauseous and started vomiting. ED MD notified order for zofran ODT obtained. Nursing Note:
== END 2023-09-28 02:07 | disposition left against medical advice (07) ==
PROVIDERS: Registered Nurse Emergency; Emergency Provider Student in an Organized Health Care Education/Training Program
DX: T50.901A Poisoning by unspecified drugs, medicaments and biological substances, accidental (unintentional), initial encounter (principal); F17.210 Nicotine dependence, cigarettes, uncomplicated; R11.0 Nausea; R40.4 Transient alteration of awareness; Y92.9 Unspecified place or not applicable; Z53.29 Procedure and treatment not carried out because of patient's decision for other reasons
CPT/HCPCS: 80053; 93005; 99284; 80320; 80329; 83735; 84484; 85025; 93010; 99283

== ENCOUNTER 2024-03-04 20:12 | Emergency (ER) | payer MEDICAID, SELFPAY ==
[2024-03-04] VITALS (27 sets, daily range): BP systolic 98–110; BP diastolic 42–58; PULSE 71–111; RESP 14–20; TEMP 36.4–38.3; O2SAT 98–100
[2024-03-04 20:57] LABS: BE (Venous) 3 mmol/L (-2-3); HCO3 (Venous) 28 mmol/L (23-28); O2 Sat (Venous) 56 %; TCO2 (Venous) 26 mmol/L (24-29); pCO2 (Venous) 48 mmHg (41-51); pH (Venous) 7.38 (7.31-7.41); pO2 (Venous) 29 mmHg
[2024-03-04] MEDS: ACETAMINOPHEN 1,000 MG/100 ML BTL 400 MG IVPB (20:59)
[2024-03-04] MEDS: Normal Saline 1,000 ML 1000 ML IV (21:00)
[2024-03-04 21:01] LABS: HCT 39.6 % (36.0-46.0); HGB 12.9 g/dL (11.2-15.7); MCH 28.1 pg (27.0-33.0); MCHC 32.6 % (32.0-36.0); MCV 86 fL (80-95); Platelet Count 168 10^3/uL (130-400); RBC 4.59 10^6/uL (3.93-5.22); RDW 13.4 % (11.7-14.6); RDW-SD 42.5 fL; WBC 3.66 10^3/uL (4.4-10.8)
[2024-03-04 21:19] LABS: INR 1.1 (0.9-1.1); PTT Activated 26.4 sec (23.6-32.8)
[2024-03-04 21:24] LABS: ALT 16 U/L (14-59); AST 13 U/L (15-37); Albumin 3.3 g/dL (3.4-5.0); Alkaline Phosphatase 72 U/L (46-116); Anion Gap 9.3 mmol/L (3-11); BUN 9 mg/dL (7-18); Bilirubin, Total 0.23 mg/dL (0.2-1.0); CO2 27.7 mmol/L (21.0-32.0); Calcium 8.6 mg/dL (8.5-10.1); Chloride 103 mmol/L (98-107); Estimated GFR 75.81 (mL/min/1.73m2); Glucose 116 mg/dL (74-106); Lipase 35 U/L (16-77); Magnesium 1.7 mg/dL (1.8-2.4); Potassium 3.6 mmol/L (3.5-5.1); Sodium 140 mmol/L (136-145); Total Protein 7.6 g/dL (6.4-8.2)
[2024-03-04 21:28] LABS: Absolute Basophil Count 0.04 10^3/uL (0.0-0.2); Absolute Eosinophil Count 0.22 10^3/uL (0.0-0.7); Absolute Lymphocyte Count 0.84 10^3/uL (1.2-3.4); Absolute Monocyte Count 0.11 10^3/uL (0.1-0.8); Absolute Neutrophil Count 2.45 10^3/uL (1.2-6.7); Atypical Lymphocytes % 4 %
[2024-03-04 21:29] LABS: Diff Comment Manual Differential; RBC Morphology Normal
[2024-03-04] MEDS: Omnipaque 350 MG/ML 100 ML BTL IJ (21:35)
[2024-03-04] MEDS: Normal Saline - Diluent 50 ML VIAL IJ (21:36)
--- NOTE | 2024-03-04 21:39 | W.ED.GENAD ---
Discharge Plan Disposition Patient Disposition: Home Condition: Improving Discharge Details Clinical Impression: Body aches, Fever Primary Care Provider: Unknown,Unknown ED Provider: Fidel Funes Home Meds and New Rx's Prescriptions: New clindamycin HCl 300 mg capsule 300 mg PO TID 7 Days Qty: 21 0RF No Action naloxone [Narcan] 4 mg/actuation spray,non-aerosol 4 mg intranasal Q2M PRNQty: 2 0RF Rx Instructions: spray 1 dose into ONE nostril; alternate nostrils w each dose until help arrives Discharge Instructions Instructions: Fever, Adult ED Additional Instructions: Please follow-up with your primary care physician. Please return to the emergency department for any worsening symptoms HPI General Date/Time Provider Initiated Documentation: 03/04/24 20:33. HPI Narrative: 33-year-old female presents with full body aches sweats and chills as well as fever had a left upper molar dental abscess that spontaneously drained 2 days ago Related Data Home Medications ?Medication ?Instructions ?Recorded ?Confirmed naloxone 4 mg/actuation nasal 4 mg intranasal Q2M PRN #2 ea 09/28/23 03/04/24 spray (Narcan) clindamycin HCl 300 mg capsule 300 mg PO TID 7 days #21 caps 03/04/24 Previous Rx's ?Medication ?Instructions ?Recorded naloxone 4 mg/actuation nasal 4 mg intranasal Q2M PRN #2 ea 09/28/23 spray (Narcan) clindamycin HCl 300 mg capsule 300 mg PO TID 7 days #21 caps 03/04/24 Allergies Allergy/AdvReac Type Severity Reaction Status Date / Time codeine (Codeine) Allergy Severe THROAT Verified 03/04/24 20:22 SWELLS, TROUBLE BREATHING oxycodone AdvReac Intermediate Nausea Verified 03/04/24 20:22 General Stated Complaint: GenMedical JEANNINE: 3 Exam Narrative Exam Narrative: Appears fatigued Pale, slightly dry oral mucosa, no discrete dental abscess, no submandibular submental or sublingual induration no pain or crepitus to the neck Neck soft and supple normal voice no stridor Lungs clear bilaterally no wheezing rales or rhonchi Tachycardia, normal sinus, no murmurs rubs or gallops Abdomen soft nontender nondistended Course Vital Signs Vital signs: Vital Signs Temperature 38.3 C H 03/04/24 20:16 Pulse 111 H 03/04/24 20:16 Respiratory Rate 20 03/04/24 20:16 Temperature 38.3 C H 03/04/24 20:16 Pulse 111 H 03/04/24 20:16 Respiratory Rate 20 03/04/24 20:16 Respiratory Effort Normal 03/04/24 20:22 Respiratory Depth Normal 03/04/24 20:22 Respiratory Pattern Normal 03/04/24 20:22 Blood Pressure Position Supine 03/04/24 20:16 Oxygen Delivery Method Room Air 03/04/24 20:16 Oxygen Flow Rate 0 03/04/24 20:16 Pain Level 10 03/04/24 20:16 Lab/Test Results Lab/Test Results: 03/04/24 20:47 Blood Blood Culture - Pending 03/04/24 20:33 Blood Blood Culture - Pending Laboratory Tests Range/Units 03/04/24 20:46 WBC (4.4-10.8) 10^3/uL 3.66 L RBC (3.93-5.22) 10^6/uL 4.59 Hgb (11.2-15.7) g/dL 12.9 Hct (36.0-46.0) % 39.6 MCV (80-95) fL 86 MCH (27.0-33.0) pg 28.1 MCHC (32.0-36.0) % 32.6 RDW (11.7-14.6) % 13.4 Plt Count (130-400) 10^3/uL 168 MPV (8.0-11.0) fL 10.0 Immature Gran % % 0.0 Neutrophils % % 67.0 Lymphocytes % % 19.0 Atypical Lymphs % % 4 Monocytes % % 3.0 Eosinophils % % 6.0 Basophils % % 1.0 Nucleated RBC % (0.0-0.3) % 0.0 Absolute Neutrophils (1.2-6.7) 10^3/uL 2.45 Absolute Lymphocytes (1.2-3.4) 10^3/uL 0.84 L Absolute Monocytes (0.1-0.8) 10^3/uL 0.11 Absolute Eosinophils (0.0-0.7) 10^3/uL 0.22 Absolute Basophils (0.0-0.2) 10^3/uL 0.04 RBC Morphology Normal PT (9.1-11.1) sec 11.0 INR (0.9-1.1) 1.1 APTT (23.6-32.8) sec 26.4 VBG pH (7.31-7.41) 7.38 VBG pCO2 (41-51) mmHg 48 VBG pO2 mmHg 29 VBG HCO3 (23-28) mmol/L 28 VBG Total CO2 (24-29) mmol/L 26 VBG O2 Saturation % 56 VBG Base Excess (-2-3) mmol/L 3 Sodium (136-145) mmol/L 140 Potassium (3.5-5.1) mmol/L 3.6 Chloride (98-107) mmol/L 103 Carbon Dioxide (21.0-32.0) mmol/L 27.7 Anion Gap (3-11) mmol/L 9.3 BUN (7-18) mg/dL 9 Creatinine (0.55-1.02) mg/dL 1.0 Est GFR (CKD-EPI 2020) (mL/min/1.73m2) 75.81 Glucose (74-106) mg/dL 116 H Calcium (8.5-10.1) mg/dL 8.6 Magnesium (1.8-2.4) mg/dL 1.7 L Total Bilirubin (0.2-1.0) mg/dL 0.23 AST (15-37) U/L 13 L ALT (14-59) U/L 16 Alkaline Phosphatase (46-116) U/L 72 Total Protein (6.4-8.2) g/dL 7.6 Albumin (3.4-5.0) g/dL 3.3 L Lipase (16-77) U/L 35 TSH (0.36-3.74) uIU/mL 1.80 Medical Decision Making 33-year-old female presents with bodyaches fatigue fever tachycardia, in the setting of spontaneously draining left upper molar dental abscess 2 days ago, patient also has discomfort radiating to her neck and abdominal discomfort, alert oriented interactive appears fatigued maintaining airway tolerating secretions, no submandibular submental or sublingual induration, no discrete dental abscess noted on examination, slight drying of oral mucosa slight pallor on examination, sinus tachycardia febrile on arrival, consider bacteremia from dental abscess versus limb years versus deep space infection head or neck however no discrete evidence of Errol's angina at this time, must consider intra-abdominal process such as cholecystitis appendicitis enteritis colitis versus UTI. Will obtain basic labs urinalysis blood cultures CT soft tissue head and neck, CT abdomen pelvis, fluids broad-spectrum antibiotics disposition pending reassessment and results 23: 31 heart rate now 76 beats per minutes, normotensive, resting comfortably no acute distress coloration greatly improved, resting comfortably. Evidence of possible enteritis on CT abdomen pelvis no evidence of deep space infection of the head or neck. Blood cultures are pending. Patient will be discharged home on p.o. clindamycin given strict return precautions for any worsening symptoms Quality:[facility] Health Related Social Needs: No Data to Display PFSH All Active Problems (Updated 05/07/20 @ 14:01 by Dionne Cline MD) Fever (Acute) Body aches (Acute) Abnormal Pap smear of cervix (Acute) 2019. LGSIL. 05/2021:Colpo directed bx. Menses, irregular (Acute) Postcoital bleeding (Acute) History of cholecystectomy (Chronic) Tobacco use (Acute) Heavy menstrual bleeding (Acute) Gallstone pancreatitis (Acute 07/18/14) Asthma (Chronic) H/O surgical procedure (Chronic) a. for breech presentation 06/2014 Medical History (Updated 03/04/24 @ 23:32 by Fidel Funes MD) Asthma Seasonal allergic rhinitis uses inhaler Migraine Surgical History (Updated 05/07/20 @ 14:01 by Dionne Cline MD) section (06/18/14) LTCS/aoc. IOL for post dates at 40w4d breech presentation noted in labor. F. 6lb 7.9oz. 'Sujata'. Family History (Updated 05/07/20 @ 13:50 by Dionne Cline MD) Mother No problems noted. Other Personal history of malignant neoplasm Social History (Updated 05/07/20 @ 13:54 by Dionne Cline MD) Smoking/Tobacco Use Status: Current every day Smoking risk assessment performed?: Yes Alcohol Intake: current Alcohol Intake frequency: holidays/special occasions only Drug use: Occasionally Substance use type: marijuana Household members: significant other, children and other Details: BF-Jake. 2 sons. D-Sujata Number of Children: 3 current occupation: Private care in [employer] Do you feel safe at home: Yes Do you feel safe in your relationship?: Yes Female Reproductive History Menstrual Duration of menses: 6-7 days (Patient reports heavy with associated cramping) control method: permanent sterilization (BTL at time of delivery) History History 5 Para 3 Hx # Term Pregnancies 3 Multiple births Hx # Pregnancies Ectopic pregnancies AB induced Hx Number of Living Children 3 AB spontaneous 2
--- NOTE | 2024-03-04 21:45 | DI.CT_ITS ---
Exam(s) CT ABDOMEN PELVIS W EXAM: CT ABDOMEN PELVIS W CLINICAL HISTORY: fever abd pain TECHNIQUE: Imaging Protocol: Axial computed tomography images with coronal and sagittal reformatted images were created and reviewed. CONTRAST MATERIAL: Intravenous: Omnipaque 350 Contrast volume:70 mL Oral: No COMPARISON: CR ABDOMEN FLAT PLATE from 06/19/2014 FINDINGS: ABDOMEN: Lung Bases: Normal where visualized. Liver: Normal density. No measurable mass. Portal, Superior Mesenteric, and Splenic Veins: Unremarkable. Gallbladder and Biliary Tract: Status post cholecystectomy. No significant biliary ductal dilatation . Pancreas: Normal density, no abnormal calcifications or inflammatory process. Spleen: Normal. Adrenals: No masses seen. Kidneys: Normal size, contour and axis. No obstructive uropathy. No masses seen. Abdominal Aorta: Abdominal portion non-dilated. Bowel: No obstruction or bowel wall thickening. Appendix is unremarkable. Peritoneal Cavity: No ascites, collection or mesenteric inflammatory response. No free air. Lymph Nodes: Within normal limits. Bones: Within normal limits for the patient's age. There is sclerosis seen at the iliac sides of bot h sacroiliac joints, left greater than right. No erosion or cortical disruption is seen. No associa ramin soft tissue mass is present. 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 Soft Tissues: Unremarkable. PELVIS: Bladder: Symmetric distention, no gross wall thickening. Reproductive Organs: Unremarkable as visualized. Lymph Nodes: Within normal limits. Bones: Within normal limits for the patient's age. IMPRESSION: 1. No acute abdominal or pelvic process. 2. Status post cholecystectomy. No biliary ductal dilatation. 3. No evidence of bowel obstruction or bowel wall thickening. RADIATION DOSE DELIVERED: Total DLP DATA REPOSITORY: All CT scans at this facility are submitted to the National Radiology Data Registry (NRDR) Dose Index Registry (DIR) with the [employer] (A[employer]). RADIATION OPTIMIZATION: All CT scans at this facility use at least one of these dose optimization te chniques: automated exposure control; mA and/or kV adjustment per patient size (includes targeted exa ms where dose is matched to clinical indication); or iterative reconstruction.
[2024-03-04 21:50] LABS: COVID-19 PCR Negative (Negative); Influenza A PCR Negative (Negative); Influenza B PCR Negative (Negative); RSV PCR Negative (Negative); Source Nasopharynx
--- NOTE | 2024-03-04 22:03 | DI.CT_ITS ---
Exam(s) CT NECK W EXAM: CT NECK W CLINICAL HISTORY: left upper dental infection, left neck pain septic. TECHNIQUE: Imaging Protocol: Axial computed tomography images with coronal and sagittal reformatted images were created and reviewed. CONTRAST MATERIAL: Intravenous: Omnipaque 350 Contrast volume:40mL COMPARISON: CT HEAD WITHOUT CONTRAST from 11/24/2013 FINDINGS: Orbits and orbital soft tissues: Within normal limits. Visualized paranasal sinuses: There is minimal mucosal thickening in the visualized paranasal sinuse s. No fluid levels are seen. The mastoid air cells are clear. Nasopharynx: Within normal limits. Oropharynx: Within normal limits. Hypopharynx: Within normal limits. Larynx: Within normal limits. Retropharyngeal space: Within normal limits. Parotids/submandibular: Within normal limits. Thyroid gland: Within normal limits. Lymphadenopathy: There is scattered lymph nodes seen along the level one to level three all measurin g less than 8 mm in short axis diameter which are physiologic in nature. Trachea: Within normal limits. Lung apices: Note is made of an azygos lobe. Bones: Within normal limits for the patient's age. Mild degenerative changes are seen at C6-C7. The re is straightening of the normal cervical lordosis. Carotids/Jugular: Within normal limits. Soft tissues: Within normal limits. IMPRESSION: No acute abnormality is seen in the neck. No evidence of an abscess or soft tissue gas. RADIATION DOSE DELIVERED: Total DLP Total DLP DATA REPOSITORY: All CT scans at this facility are submitted to the National Radiology Data Registry (NRDR) Dose Index Registry (DIR) with the [employer] (ACR). RADIATION OPTIMIZATION: All CT scans at this facility use at least one of these dose optimization te chniques: automated exposure control; mA and/or kV adjustment per patient size (includes targeted exa ms where dose is matched to clinical indication); or iterative reconstruction.
--- NOTE | 2024-03-04 22:48 | DI.RAD_ITS ---
Exam(s) XR CHEST 2V PA LATERAL EXAM: XR CHEST 2V PA LATERAL CLINICAL HISTORY: fever chills TECHNIQUE: 2D digital imaging was performed of the chest. Two images were obtained. PA and lateral views were obtained. COMPARISON: CR,XR XR CHEST 2V PA LATERAL from 08/14/2019 FINDINGS: MEDIASTINUM: Normal. HEART: Normal. PULMONARY VASCULATURE: Normal. LUNGS: Clear. Note is made of an azygos lobe. PLEURAL SPACE: No pleural effusion or pneumothorax. BONE:Within normal limits for the patient's age. OTHER FINDINGS:Normal. IMPRESSION: No acute pulmonary findings. DATA REPOSITORY: RADIATION DOSE DELIVERED:
[2024-03-04] MEDS: PIPERACILLIN/TAZO 3.375 GM in Normal Saline 50 ML IVPB (22:50)
[2024-03-04 23:00] LABS: Bilirubin Negative (Negative); Blood Negative (Negative); Clarity Clear (Clear); Glucose Negative (Negative); Ketones Negative (Negative); Leukocyte Esterase Negative (Negative); Nitrite Negative (Negative); Specific Gravity <= 1.005 (1.005-1.025); Urobilinogen 0.2 mg/dL (Up to 0.2)
--- NOTE | 2024-03-04 23:04 | DI.VRAD_ITS ---
PROCEDURE INFORMATION: Exam: CT Abdomen And Pelvis With Contrast Exam date and time: 03/04/2024 9:37 PM Age: 33 years old Clinical indication: Fever; Abdominal pain TECHNIQUE: Imaging protocol: Computed tomography of the abdomen and pelvis with contrast. Radiation optimization: All CT scans at this facility use at least one of these dose optimization techniques: automated exposure control; mA and/or kV adjustment per patient size (includes targeted exams where dose is matched to clinical indication); or iterative reconstruction. Contrast material: OMNIPAQUE 350; Contrast volume: 100 ml; Contrast route: INTRAVENOUS (IV); COMPARISON: CR XR CHEST 2V PA LATERAL 08/14/2019 1:22 AM FINDINGS: Liver: Normal. Gallbladder and biliary ducts: Gallbladder surgically absent. Pancreas: Normal. Spleen: Normal. Adrenal glands: Normal. No mass. Kidneys and ureters: Normal. Stomach and bowel: Several loops of nondilated, gas and fluid-filled small bowel, which is a nonspecific finding, but can be seen with enteritis. Appendix: Appendix normal. Intraperitoneal space: Unremarkable. No free air. No significant fluid collection. Vasculature: Unremarkable. No abdominal aortic aneurysm. Lymph nodes: Unremarkable. No enlarged lymph nodes. Urinary bladder: Unremarkable as visualized. Reproductive: Unremarkable as visualized. 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 Soft tissues: Normal. IMPRESSION: Several loops of nondilated, gas and fluid-filled small bowel, which is a nonspecific finding, but can be seen with enteritis. Dictated and Authenticated by: Jesus Oleary MD. Ordering:GABRIELE Parra MD
--- NOTE | 2024-03-04 23:07 | DI.VRAD_ITS ---
PROCEDURE INFORMATION: Exam: XR Chest Exam date and time: 03/04/2024 9:57 PM Age: 33 years old Clinical indication: Hyperventilation; Patient HX: Fever. Chills TECHNIQUE: Imaging protocol: Radiologic exam of the chest. Views: 2 views. COMPARISON: CR XR CHEST 2V PA LATERAL 08/14/2019 1:22 AM FINDINGS: Lungs: Accessory azygous fissure. No focal consolidation or pulmonary nodules. No pulmonary edema. Pleural spaces: Unremarkable. No pleural effusion. No pneumothorax. Heart/Mediastinum: Normal. Bones/joints: No acute abnormality. Organs: Cholecystectomy clips in the right upper abdomen. IMPRESSION: No acute cardiopulmonary abnormality. Dictated and Authenticated by: Jesus Oleary MD. Ordering:GABRIELE Parra MD
--- NOTE | 2024-03-04 23:15 | DI.VRAD_ITS ---
PROCEDURE INFORMATION: Exam: CT Neck With Contrast Exam date and time: 03/04/2024 9:44 PM Age: 33 years old Clinical indication: Other: Left upper dental abscess, fever, neck pain TECHNIQUE: Imaging protocol: Computed tomography of the neck with contrast. Radiation optimization: All CT scans at this facility use at least one of these dose optimization techniques: automated exposure control; mA and/or kV adjustment per patient size (includes targeted exams where dose is matched to clinical indication); or iterative reconstruction. Contrast material: OMNIPAQUE; Contrast volume: 40 ml; Contrast route: INTRAVENOUS (IV); COMPARISON: CR XR SHOULDER RT COMPLETE 2+V 04/28/2022 11:48 AM FINDINGS: Paranasal sinuses: Mild ethmoid and bilateral maxillary sinus disease. Salivary glands: Normal. Glands are normal in size. Pharynx: Unremarkable. No significant tonsillar enlargement. Prevertebral and retropharyngeal spaces: Unremarkable. Larynx: Unremarkable. Epiglottis is normal. Thyroid: Normal. No enlarged or calcified nodules. Trachea: Visualized trachea is unremarkable. Lungs: Accessory azygous fissure partially visualized. Lymph nodes: Few small lymph nodes within the cervical chains and supraclavicular regions, likely reactive, but nonspecific. Bones/joints: Unremarkable. No acute fracture. Soft tissues: No soft tissue abscess identified. IMPRESSION: No acute abnormality. Dictated and Authenticated by: Jesus Oleary MD. Ordering:GABRIELE Parra MD
[2024-03-04] MEDS: Ketorolac 15 MG/ML VIAL IVP ×2 (23:27→23:37)
[2024-03-05 00:03] VITALS: BP 130/49; PULSE 78; RESP 16; O2SAT 99
--- NOTE | 2024-03-05 16:33 | NUR.NOTE ---
Nursing Note: Received call from patient requesting lab results that were pending when she was discharged last night. Send out tests are still pending. Pt states she feels worse today and increased swelling/weakness. Pt was instructed to return to be seen again urgently for worsening sx despite being on abx.
[2024-03-06 11:23] LABS: Lyme Ab w Rflx to Lyme Confirm Negative (Negative)
[2024-03-07 20:23] LABS: Anaplasma phagocytophilum Negative (Negative); B. miyamotoi PCR Negative (Negative); Babesia divergens/MO-1 Negative (Negative); Babesia duncani Negative (Negative); Babesia microti Negative (Negative); Ehrlichia chaffeensis Negative (Negative); Ehrlichia ewingii/canis Negative (Negative); Ehrlichia muris eauclairensis Negative (Negative)
== END 2024-03-05 00:06 | disposition home or self-care (01) ==
PROVIDERS: Emergency Provider Emergency Medicine
DX: M79.10 Myalgia, unspecified site (principal); R50.9 Fever, unspecified; F17.200 Nicotine dependence, unspecified, uncomplicated
CPT/HCPCS: 70491; 80053; 82805; 83690; 87040; 87637; 87798; 96365; 96366; 96367; 96375; 99285; 71046; 74177; 81003; 83735; 84443; 85025; 85610; 85730; 86618; 99284; J0131; J1885; J2543; J3490

== ENCOUNTER 2024-03-06 11:46 | Emergency (ER) | payer MEDICAID, SELFPAY ==
[2024-03-06 12:01] VITALS: BP 101/61; PULSE 86; RESP 16; TEMP 36.8; O2SAT 100
--- NOTE | 2024-03-06 13:05 | ED.GENADUL_ITS ---
Discharge Plan Discharge Details Chief Complaint: GenMedical Primary Care Provider: None,None ED Provider: Jayda Mota Home Meds and New Rx's Prescriptions: No Action clindamycin HCl 300 mg capsule 300 mg PO TID 7 Days Qty: 21 0RF HPI General Date/Time Provider Initiated Documentation: 03/06/24 12:22 . Related Data Home Medications ?Medication ?Instructions ?Recorded ?Confirmed clindamycin HCl 300 mg capsule 300 mg PO TID 7 days #21 caps 03/04/24 03/06/24 Previous Rx's ?Medication ?Instructions ?Recorded clindamycin HCl 300 mg capsule 300 mg PO TID 7 days #21 caps 03/04/24 Allergies Allergy/AdvReac Type Severity Reaction Status Date / Time codeine (Codeine) Allergy Severe THROAT Verified 03/06/24 13:10 SWELLS, TROUBLE BREATHING oxycodone AdvReac Intermediate Nausea Verified 03/06/24 13:10 General Stated Complaint: GenMedical JEANNINE: 3 Review of Systems All systems reviewed & are unremarkable except as noted in HPI and below Constitutional Constitutional: Reports as per HPI, Reports body ache(s), Reports fatigue, Reports lethargy, Reports malaise and Reports weakness ENT Ears, Nose, Mouth, and Throat: Reports as per HPI and Reports change in voice (muffles voice) Cardiovascular Cardiovascular: Denies chest pain Neurologic Neurologic: Reports weakness Endocrine Endocrine: Reports fatigue Exam Narrative Exam Narrative: Constitutional: Alert and oriented x3. Appears older than stated age. Normal b nahomy habitus. Patient is tearful, no focal neurodeficits however she is having a hard time raising her left arm, she does have hand swelling. Head: Normocephalic, no trauma. Eyes: Pupils PERRL, Red reflex noted, EOM's intact. Eyelids symmetrical without lesions, discharge, or swelling. ENT: Bilateral TM's WNL, External ear normal to inspection, no mastoid TTP, swelling, or erythema, Nasal turbinates WNL, no nasal discharge. Very poor dentition, multiple cavities, posterior pharynx WNL, no exudate. Chest: RRR, Normal S1, S2, distal pulses intact. Resp: Lungs clear to auscultation bilaterally, no wheezes, rales, or rhonchi. Abdomen: Soft, non-distended, Normoactive bowel sounds all 4 quads. Musculoskeletal: Normal gait, bilateral lower extremities without difficulty, does have pain tenderness with left arm abduction, does have left lateral paraspinous swelling and spasm noted, intact flexion of neck no nuchal rigidity, Skin: No suspicious rashes or lesions. Capillary refill less than 2 sec. Neurologic: Cranial nerves II-XII intact. Alert and oriented x 3. Motor: No deficits noted. Sensory: Intact bilaterally all 4 extremities. 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 Hematologic/Lymphatic: No ecchymosis, no lymphadenopathy. Course Vital Signs Vital signs: Vital Signs Temperature 36.8 C 03/06/24 12:01 Pulse 86 03/06/24 12:01 Respiratory Rate 16 03/06/24 12:01 Blood Pressure 101/61 03/06/24 12:01 Pulse Oximetry 100 03/06/24 12:01 Temperature 36.8 C 03/06/24 12:01 Temperature Source Oral 03/06/24 12:01 Pulse 86 03/06/24 12:01 Respiratory Rate 16 03/06/24 12:01 Blood Pressure 101/61 03/06/24 12:01 Blood Pressure Position Sitting 03/06/24 12:01 Pulse Oximetry 100 03/06/24 12:01 Oxygen Delivery Method Room Air 03/06/24 12:01 Oxygen Flow Rate 0 03/06/24 12:01 Pain Level 9 03/06/24 12:01 Comment Took APAP and ibuprofen this morning 03/06/24 12:01 Lab/Test Results Lab/Test Results: POC- Test(urine) Negative Medical Decision Making 33-year-old female presents to the ER with chief complaint of pain and cramping in her legs, she was here 48 hours ago had extensive workup including labs, CT neck head abdomen pelvis with an unremarkable workup. She did walk to the bathroom with out assistance and steady gait per ED staff to obtain urinalysis. She does have Swelling to her upper extremities, and reported increased pain with movement worse on the left lateral paraspinous neck. No focal neurodeficits noted no facial droop. Denies any blurry vision or double vision. She does report weakness in her upper extremities. Left-sided radiculopathy type symptoms. She is having a hard time making fists, hard time with extension due to swelling. Labs repeated UDS shows positive for cocaine. Differential diagnosis includes Endo carditis, cervical radiculopathy, drug substance abuse, CMP shows calcium 8.2 magnesium 1.4, albumin 2.6. Discussed symptoms and consideration for MRI with radiology. CT head ordered initially however CT imaging is not available at this time. MRI brain and C- spine ordered to rule out cervical radiculopathy. Flexeril 10 mg p.o. ordered,1 gram of magnesium IV piggyback, echocardiogram to rule out endocarditis and EKG. White blood cells 2.48, hemoglobin 10.4 hematocrit 31.9, glucose 108 calcium 8.2, mag 1.4 was 1.72 days ago, albumin 2.6, urinalysis shows 30 protein moderate blood greater than 50 RBCs. On chart review patient did have blood cultures drawn 2 days ago which showed no growth, endocarditis is unlikely however, echocardiogram ordered to rule this out, pending MRI did give Flexeril p.o. and 1000 mg of calcium carbonate p.o. MRI brain and C-spine ordered due to Cervical radiculopathy and muscle upper extremity weakness. Echocardiogram is largely within normal limits, see official report, LVEF is 57%, no evidence for septal defect, no aortic regurgitation, trace mitral regurgitation, valves are normal in structure, there is trace tricuspid regurgitation, no pulmonic valvular regurgitation, no pericardial effusion. Patient is requesting to eat, I did have staff offer ice chips and clear liquids only at this time. Care is to be handed off to oncoming provider EPHRAIM Guthrie pending MRI brain and C-spine. MRI changed to with and without to rule out abscess. Discussed patient case in details with him he verbalized understanding. At the time of this dictation patient is hemodynamically stable. Working diagnosis at this time is cervical radiculopathy, cervical epidural abscess, musculoskeletal strain, muscle spasm, torticollis, Hypomagnesemia (which was treated) and substance abuse. This text was generated using [employer]ation system, please disregard any oddities of phrase or misspellings. Medical Records Medical records reviewed: Yes I reviewed the patient's medical records. Lab Data Lab results reviewed: Yes I reviewed the patient's lab results. Labs: Laboratory Tests Range/Units 07/24/24 07/24/24 12:30 13:05 WBC (4.4-10.8) 10^3/uL 2.48 L RBC (3.93-5.22) 10^6/uL 3.69 L Hgb (11.2-15.7) g/dL 10.4 L D Hct (36.0-46.0) % 31.9 L MCV (80-95) fL 86 MCH (27.0-33.0) pg 28.2 MCHC (32.0-36.0) % 32.6 RDW (11.7-14.6) % 13.4 Plt Count (130-400) 10^3/uL 157 MPV (8.0-11.0) fL 9.9 Immature Gran % See Differential Neutrophils % % 52.0 Band Neutrophils % % 2 Lymphocytes % % 24.0 Atypical Lymphs % % 2 Monocytes % % 6.0 Eosinophils % % 12.0 Basophils % % 2.0 Nucleated RBC % (0.0-0.3) % 0.0 Absolute Neutrophils (1.2-6.7) 10^3/uL 1.34 Absolute Lymphocytes (1.2-3.4) 10^3/uL 0.64 L Absolute Monocytes (0.1-0.8) 10^3/uL 0.15 Absolute Eosinophils (0.0-0.7) 10^3/uL 0.30 Absolute Basophils (0.0-0.2) 10^3/uL 0.05 RBC Morphology Normal Sodium (136-145) mmol/L 140 Potassium (3.5-5.1) mmol/L 3.9 Chloride (98-107) mmol/L 107 Carbon Dioxide (21.0-32.0) mmol/L 28.7 Anion Gap (3-11) mmol/L 4.3 BUN (7-18) mg/dL 13 Creatinine (0.55-1.02) mg/dL 1.0 Est GFR (CKD-EPI 2020) (mL/min/1.73m2) 75.81 Glucose (74-106) mg/dL 108 H Calcium (8.5-10.1) mg/dL 8.2 L Magnesium (1.8-2.4) mg/dL 1.4 L Total Bilirubin (0.2-1.0) mg/dL 0.14 L AST (15-37) U/L 10 L ALT (14-59) U/L 13 L Alkaline Phosphatase (46-116) U/L 59 Creatine Kinase (26-192) U/L 15 L Total Protein (6.4-8.2) g/dL 6.2 L Albumin (3.4-5.0) g/dL 2.6 L Urine Color (Yellow) Yellow Urine Clarity (Clear) Clear Urine pH (5-8) 6.0 Ur Specific [place] (1.005-1.025) 1.020 Urine Protein (Neg-Trace) mg/dL 30 H Urine Ketones (Negative) mg/dL Negative Urine Blood (Negative) Moderate H Urine Nitrite (Negative) Negative Urine Bilirubin (Negative) Negative Urine Urobilinogen (Up to 0.2) mg/dL 0.2 Ur Leukocyte Esterase (Negative) Negative Urine RBC (0-2) HPF >50 H Urine WBC (0-5) HPF 0-2 Ur Epithelial Cells (Negative) HPF Moderate Urine Crystals (Negative) HPF Negative Urine Bacteria (Negative) HPF Few Urine Casts (Negative) LPF Negative Urine Mucus (Negative) Negative Ur Culture Indicated? No Urine Glucose (Negative) mg/dL Negative Urine Opiates Screen (Negative) Negative Urine Methadone Screen (Negative) Negative Ur Barbiturates Screen (Negative) Negative Ur Tricyclics Screen (Negative) Negative Ur Amphetamines Screen (Negative) Negative U Benzodiazepines Scrn (Negative) Negative Urine Cocaine Screen (Negative) Positive A Ur THC Screen (Negative) Negative Ethyl Alcohol (<10) mg/dL < 3.0 Quality:SDOH Health Related Social Needs: No Data to Display PFSH All Active Problems (Updated 05/07/20 @ 14:01 by Dionne Cline MD) Fever (Acute) Body aches (Acute) Abnormal Pap smear of cervix (Acute) 2019. LGSIL. 05/2021:Colpo directed bx. Menses, irregular (Acute) Postcoital bleeding (Acute) History of cholecystectomy (Chronic) Tobacco use (Acute) Heavy menstrual bleeding (Acute) Gallstone pancreatitis (Acute 07/18/14) Asthma (Chronic) H/O surgical procedure (Chronic) a. for breech presentation 06/2014 Medical History (Updated 03/04/24 @ 23:32 by Fidel Funes MD) Asthma Seasonal allergic rhinitis uses inhaler Migraine Surgical History (Updated 05/07/20 @ 14:01 by Dionne Cline MD) section (06/18/14) LTCS/aoc. IOL for post dates at 40w4d breech presentation noted in labor. F. 6lb 7.9oz. 'Sujata'. Family History (Updated 05/07/20 @ 13:50 by Dionne Cline MD) Mother No problems noted. Other Personal history of malignant neoplasm Social History (Updated 05/07/20 @ 13:54 by Dionne Cline MD) Smoking/Tobacco Use Status: Current every day Tobacco Type: cigarettes Smoking risk assessment performed?: Yes Alcohol Intake: current Alcohol Intake frequency: holidays/special occasions only Drug use: Occasionally Substance use type: marijuana Household members: significant other, children and other Details: BF-Jake. 2 sons. D-Sujata Housing: apartment Number of Children: 3 current occupation: Private care in [employer] Do you feel safe at home: Yes Do you feel safe in your relationship?: Yes Female Reproductive History Menstrual Duration of menses: 6-7 days (Patient reports heavy with associated cramping) control method: permanent sterilization (BTL at time of delivery) History History 5 Para 3 Hx # Term Pregnancies 3 Multiple births Hx # Pregnancies Ectopic pregnancies AB induced Hx Number of Living Children 3 AB spontaneous 2 Sign Out Sign Out Data: Sign Out Comment: Here 48 hours ago for tooth abscess was placed on clindamycin at that time and had CT neck with contrast abdomen pelvis CT. 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 She is positive for cocaine on her UDS, echocardiogram done which is largely within normal limits with little bit of tricuspid and mitral valve regurgitation, Pending MRI brain and C-spine to eval cervical radiculopathy and rule out epidural abscess with, negative blood cu ltures 2 days ago. Also hypomagnesemia was given 1 g magnesium IV piggyback bolus. Was given 1000 mg calcium carbonate p.o. here and 10 mg of Flexeril p.o. Last updated by Jayda Mota NP at 03/06/24 15:34
[2024-03-06 13:13] LABS: HCT 31.9 % (36.0-46.0); HGB 10.4 g/dL (11.2-15.7); MCH 28.2 pg (27.0-33.0); MCHC 32.6 % (32.0-36.0); MCV 86 fL (80-95); MPV 9.9 fL (8.0-11.0); Platelet Count 157 10^3/uL (130-400); RBC 3.69 10^6/uL (3.93-5.22); RDW 13.4 % (11.7-14.6); RDW-SD 42.9 fL; WBC 2.48 10^3/uL (4.4-10.8)
[2024-03-06 13:14] VITALS: RESP 14
[2024-03-06 13:21] LABS: *AMPHETAMINES SCREEN URINE Negative (Negative); *BARBITURATES SCREEN URINE Negative (Negative); *BENZODIAZEPINES SCREEN URINE Negative (Negative); Bilirubin Negative (Negative); Blood Moderate (Negative); Cannabinoids THC Negative (Negative); Clarity Clear (Clear); Cocaine Screen,Urine Positive (Negative); Glucose Negative (Negative); Ketones Negative (Negative); Leukocyte Esterase Negative (Negative); METHADONE URINE SCREEN Negative (Negative); Nitrite Negative (Negative); OPIATES URINE SCREEN Negative (Negative); Urobilinogen 0.2 mg/dL (Up to 0.2)
[2024-03-06 13:22] LABS: Tricyclic Antidepressants Negative (Negative)
[2024-03-06 13:28] LABS: ALT 13 U/L (14-59); AST 10 U/L (15-37); Albumin 2.6 g/dL (3.4-5.0); Alkaline Phosphatase 59 U/L (46-116); Anion Gap 4.3 mmol/L (3-11); BUN 13 mg/dL (7-18); Bilirubin, Total 0.14 mg/dL (0.2-1.0); CO2 28.7 mmol/L (21.0-32.0); Calcium 8.2 mg/dL (8.5-10.1); Chloride 107 mmol/L (98-107); ETHANOL BLOOD < 3.0 mg/dL (<10); Estimated GFR 75.81 (mL/min/1.73m2); Glucose 108 mg/dL (74-106); Magnesium 1.4 mg/dL (1.8-2.4); Potassium 3.9 mmol/L (3.5-5.1); Sodium 140 mmol/L (136-145); Total Protein 6.2 g/dL (6.4-8.2)
--- NOTE | 2024-03-06 13:30 | RT.EKG_ITS ---
APPROVED REPORT Exam: Resting ECG Reason for Exam: weakness Patient Location: E HR:75 bpm ECG Measurements Heart Rate 75 AXIS GA 184 P 54 QRSd 85 QRS 31 QT 377 T 43 QTc 423 Conclusion Sinus rhythm...normal P axis, V-rate 60- 99 sinus rhythml normal axis, normal interavls, non ischemls
[2024-03-06 13:37] LABS: Absolute Lymphocyte Count 0.64 10^3/uL (1.2-3.4); Absolute Monocyte Count 0.15 10^3/uL (0.1-0.8); Absolute Neutrophil Count 1.34 10^3/uL (1.2-6.7); Atypical Lymphocytes % 2 %; Bands % 2 %
[2024-03-06 13:38] LABS: Absolute Basophil Count 0.05 10^3/uL (0.0-0.2); Diff Comment Manual Differential; RBC Morphology Normal
[2024-03-06 13:40] LABS: Bacteria Few HPF (Negative); Casts Negative LPF (Negative); Crystals Negative HPF (Negative); Epithelial Cells Moderate HPF (Negative); Mucus Negative (Negative); RBC >50 HPF (0-2); WBC 0-2 HPF (0-5)
[2024-03-06 13:41] LABS: C & S Indicated? No
[2024-03-06] MEDS: MAGNESIUM SULFATE 1 GM/100 ML BAG IVINF (13:58)
[2024-03-06] MEDS: Normal Saline Flush 10 ML SYR IVP ×3 (13:58→17:45)
[2024-03-06] MEDS: Cyclobenzaprine 10 MG TAB PO (14:03)
[2024-03-06 14:13] LABS: Creatine Kinase 15 U/L (26-192)
--- NOTE | 2024-03-06 15:15 | DI.MRI_ITS ---
Exam(s) MR CERVICAL SPINE WO/W EXAM: MR CERVICAL SPINE WO/W CLINICAL HISTORY: myopathy UEs, ?SEA TECHNIQUE: Multiplanar multisequence MRI of the cervical spine was performed with both pre and post contrast infused sequences. Contrast injected was 15 mL AV Dotarem COMPARISON: MR MR BRAIN WO/W from 03/06/2024 FINDINGS: CERVICOMEDULLARY JUNCTION: Intact with no evidence of cerebellar tonsillar ectopia. No obvious abnor mality of the odontoid process. No evidence of Chiari 1 malformation. CERVICAL SPINAL CORD: There is no abnormal signal in the cervical spinal cord and no evidence of foca l cord atrophy nor focal cord swelling. No abnormal enhancement seen within the cord. OSSEOUS:There are no cervical fractures evident. No significant osseous lesions in the cervical vert ebrae. INDIVIDUAL LEVELS: C2-3: No disc herniation nor central canal stenosis. No foraminal stenosis. No facet arthropathy. C3-4: No disc herniation nor central canal stenosis.No facet arthropathy on the left. Mild facet art hropathy on the right. No significant foraminal stenosis. C4-5: No disc herniation nor central canal stenosis.No facet arthropathy. No foraminal stenosis C5-6: Modic type 2 sub endplate fatty marrow changes. Mild anterior osseous lipping. Minimal disc s pace narrowing. Posteriorly there is broad relatively symmetrical annular bulging which indents the thecal sac but not the spinal cord. There is mild central canal stenosis. AP measurement of the can al is 7 mm. On the left side at this level there is small Luschka joint osteophyte and disc protrusi on at the level of the exiting left neural foramen. There is only mild left-sided foraminal stenosis . There is no significant foraminal stenosis on the opposite-right side. No right-sided disc protru rose. C6-7: Mild disc space narrowing at this level noted. Mild central subligamentous annular bulging. N o prominent focal disc herniation or central canal stenosis. There is no significant facet arthropat hy. There is no foraminal stenosis at this level. C7-T1: No disc herniation nor central canal stenosis. No facet arthropathy.No foraminal stenosis. IMPRESSION: 1. At C5-6 level there is a small lateral left disc protrusion at the level of the exiting left neura l foramen. Only mild foraminal stenosis is evident. There is mild central canal stenosis. 2. There is no abnormal signal in the cervical spinal cord. DATA REPOSITORY:
--- NOTE | 2024-03-06 15:15 | DI.MRI_ITS ---
Exam(s) MR BRAIN WO/W EXAM: MR BRAIN WO/W CLINICAL HISTORY: myopathy UEs; ?SEA vs neuro cause TECHNIQUE: Multiplanar multisequence MRI of the brain was performed. Both noninfused and contrast i nfused sequences were performed. IV Contrast injected was cc Dotarem. COMPARISON: No exams were available for comparison FINDINGS: CEREBRAL PARENCHYMA: No evidence of intracranial hemorrhage, mass effect nor shift of midline structu re. No extraaxial fluid collections. Ventricles are not enlarged nor shifted. There is no significant focal signal abnormality in the cerebellar hemispheres nor within the gladys, m idbrain, and thalami. There is no significant abnormal signal abnormality in the periventricular white matter. There is a single non-specific tiny 2 millimeter FLAIR bright focus of signal abnormality in the left supra vent ricular white matter left frontal lobe which is not associated with hemorrhage, surrounding edema, no r restricted diffusion. This is a nonspecific finding. There is no evidence to suggest demyelinatin g disease in the brain. DWI: No areas of restricted diffusion to suggest acute ischemic event. SWI: No microhemorrhages evident. There are no ring enhancing lesions in the brain. There is no abnormal meningeal enhancement. PITUITARY GLAND: No mass nor parasellar abnormality. No obvious abnormality in the cavernous sinuses. FLOW VOIDS: The expected flow void are noted. No evidence of obvious aneurysm nor obvious vascular ma lformation. PARANASAL SINUSES: The visualized paranasal sinuses appear unremarkable. ORBITS: No obvious abnormal findings. IMPRESSION: 1. No significant acute intracranial findings on this MRI scan of the brain. 2. No abnormal enhancing intracranial findings. There are no ring enhancing lesions in the brain and there is no abnormal meningeal enhancement. No evidence of demyelinating disease 3. Single tiny nonspecific 2 millimeter focus signal abnormality in the white above the left ventric le left frontal lobe. This is a nonspecific finding. Reports both MRIs called by myself to ER provider 03/06/2024 5:55 p.m. DATA REPOSITORY:
[2024-03-06] MEDS: Calcium Carbonate *TUMS* 500 MG CHEW 1000 MG PO (15:17)
--- NOTE | 2024-03-06 15:38 | W.EDPROG ---
Date of service: 03/06/24 Time of Service: 15:38 Medical Decision Making This dictation utilizes [id number] dictation software and may contain unedited grammatical errors. Patient seen in sign-out from Jayda Mota NP - please see her complete note. Essentially this 33 y/o F presents to ED today with a chief complaint of inability to use her arms, weakness- was seen last week for dental infection and started on clindamycin. Now she is reporting inability to use her arms, and leg pain, and feeling very lethargic. Patient has a history of polysubstance abuse and endorses crack cocaine use. Patient is able to flex her elbows. Prior provider considered endocarditis. Patient is awaiting MRIs of Brain and C-Spine. Patients' medical history: Tobacco use, gallstone pancreatitis, asthma, polysubstance abuse. Family and social history: Recent crack cocaine use, denies alcohol intoxication. Pertinent exam findings / vital signs include moving upper extremities against gravity without issue, 4+/5 with general production manager strength. Differential / pathologies of concern include Endocarditis, Myopathy, Dental Infection, Spinal Epidural Abscess, Cervical Radiculopathy. Diagnostic studies of: -Reviewed prior studies - CBC, CMP, magnesium, UDS, alcohol level, UA, CK, echocardiogram, EKG, MRI brain and C-spine without contrast. *Added CRP/ESR, Lactate, Procalcitonin, BNP, Trop I for endocarditis workup- added H+H for re-check of acute anemia for blood loss, changed MRIs to w/wo contrast for SEA. -CBC shows leukopenia, acute anemia from prior visit on the , low lymphocytes -CMP shows no acute abnormalities save for mildly low calcium, low albumin -Magnesium 1.4, prior provider had ordered 1 g of IV magnesium -UA shows proteinuria, hematuria -UDS shows (+) for cocaine -Lactate WNL, procalcitonin negative -CRP/ESR 0.6, 24 - nonspecific -Trop I negative, BNP negative -repeat H&H shows 10.1 - patient is on menses -Patient had blood cx's at last visit with no result. Tick panel from last visit still pending. -MRIs show no acute ICH, no spinal epidural abscess, no cord impingement in c-spine- shows cervical radicular findings as below -ECHO read pending -EKG shows sinus rhythm at 75 bpm with normal axis, normal intervals, no ST changes of ischemia Interventions of: -Cyclobenzaprine, 1 g magnesium, Toradol, IV fluids 1 L. ED Course/Assessment/Plan: 33-year-old female presents few days after being diagnosed with a dental infection and starting clindamycin with weakness of her upper extremities, she is found to have mild anemia and is on her menses, has low magnesium and was given IV repletion. She has cervical radicular findings without vertebral cord or column injury on MRI of C-spine, I do not suspect any spinal epidural abscess of the cervical spinal region, has no abnormalities of brain. No signs of sepsis that the patient has leukopenia, no lactate or procalcitonin elevation, nonspecific inflammatory marker mild elevations. Patient underwent echo for her swollen fingers for possibility of endocarditis which is not read yet, has normal sinus on EKG, denies any history of IV drug use. I counseled the patient on prescription of Toradol as well as cyclobenzaprine for cervical radicular findings, recommend [id number] Lidoderm patches, gentle heat and massage to the area of pain, recommend taking magnesium supplements which were prescribed for a week and having this rechecked, I will refer to neurology for her weakness without cord or column injury seen on MRI and stressed strict return criteria for increasing fever, weakness, near syncope, chest pain, palpitations, shortness of breath. Findings not consistent with spinal cord or column injury, severe myopathy, neurovascular compromise of upper extremities, sepsis, spinal epidural abscess. Disposition of cervical radiculopathy, hypomagnesemia, anemia. Patient verbalized understanding of the plan and return to ED criteria and engaged in shared decision making. Medical Records Medical records reviewed: Yes I reviewed the patient's medical records. Imaging Data Radiologic Study: Attestation: I personally reviewed and interpreted this imaging study as follows: Imaging: MRI Radiologist's impression: EXAM: MR BRAIN WO/W CLINICAL HISTORY: myopathy UEs; ?SEA vs neuro cause TECHNIQUE: Multiplanar multisequence MRI of the brain was performed. Both noninfused and contrast infused sequences were performed. IV Contrast injected was cc Dotarem. COMPARISON: No exams were available for comparison FINDINGS: CEREBRAL PARENCHYMA: No evidence of intracranial hemorrhage, mass effect nor shift of midline structure. No extraaxial fluid collections. Ventricles are not enlarged nor shifted. There is no significant focal signal abnormality in the cerebellar hemispheres nor within the gladys, midbrain, and thalami. There is no significant abnormal signal abnormality in the periventricular white matter. There is a single non-specific tiny 2 millimeter FLAIR bright focus of signal abnormality in the left supra ventricular white matter left frontal lobe which is not associated with hemorrhage, surrounding edema, nor restricted diffusion. This is a nonspecific finding. There is no evidence to suggest demyelinating disease in the brain. DWI: No areas of restricted diffusion to suggest acute ischemic event. SWI: No microhemorrhages evident. There are no ring enhancing lesions in the brain. There is no abnormal meningeal enhancement. PITUITARY GLAND: No mass nor parasellar abnormality. No obvious abnormality in the cavernous sinuses. FLOW VOIDS: The expected flow void are noted. No evidence of obvious aneurysm nor obvious vascular malformation. PARANASAL SINUSES: The visualized paranasal sinuses appear unremarkable. ORBITS: No obvious abnormal findings. IMPRESSION: 1. No significant acute intracranial findings on this MRI scan of the brain. 2. No abnormal enhancing intracranial findings. There are no ring enhancing lesions in the brain and there is no abnormal meningeal enhancement. No evidence of demyelinating disease 3. Single tiny nonspecific 2 millimeter focus signal abnormality in the white above the left ventricle left frontal lobe. This is a nonspecific finding. Radiologic Study #2: Attestation: I personally reviewed and interpreted this imaging study as follows: Imaging: X-Ray and MRI Radiologist's impression: EXAM: MR CERVICAL SPINE WO/W CLINICAL HISTORY: myopathy UEs, ?SEA TECHNIQUE: Multiplanar multisequence MRI of the cervical spine was performed with both pre and post contrast infused sequences. Contrast injected was 15 mL AV Dotarem COMPARISON: MR MR BRAIN WO/W from 03/06/2024 FINDINGS: CERVICOMEDULLARY JUNCTION: Intact with no evidence of cerebellar tonsillar ectopia. No obvious abnormality of the odontoid process. No evidence of Chiari 1 malformation. CERVICAL SPINAL CORD: There is no abnormal signal in the cervical spinal cord and no evidence of focal cord atrophy nor focal cord swelling. No abnormal enhancement seen within the cord. OSSEOUS:There are no cervical fractures evident. No significant osseous lesions in the cervical vertebrae. INDIVIDUAL LEVELS: C2-3: No disc herniation nor central canal stenosis. No foraminal stenosis. No facet arthropathy. C3-4: No disc herniation nor central canal stenosis.No facet arthropathy on the left. Mild facet arthropathy on the right. No significant foraminal stenosis. C4-5: No disc herniation nor central canal stenosis.No facet arthropathy. No foraminal stenosis C5-6: Modic type 2 sub endplate fatty marrow changes. Mild anterior osseous lipping. Minimal disc space narrowing. Posteriorly there is broad relatively symmetrical annular bulging which indents the thecal sac but not the spinal cord. There is mild central canal stenosis. AP measurement of the canal is 7 mm. On the left side at this level there is small Luschka joint osteophyte and disc protrusion at the level of the exiting left neural foramen. There is only mild left-sided foraminal stenosis. There is no significant foraminal stenosis on the opposite-right side. No right-sided disc protrusion. C6-7: Mild disc space narrowing at this level noted. Mild central subligamentous annular bulging. No prominent focal disc herniation or central canal stenosis. There is no significant facet arthropathy. There is no foraminal stenosis at this level. C7-T1: No disc herniation nor central canal stenosis. No facet arthropathy.No foraminal stenosis. IMPRESSION: 1. At C5-6 level there is a small lateral left disc protrusion at the level of the exiting left neural foramen. Only mild foraminal stenosis is evident. There is mild central canal stenosis. 2. There is no abnormal signal in the cervical spinal cord. Lab Data Lab results reviewed: Yes I reviewed the patient's lab results. Labs: Laboratory Tests Range/Units 03/06/24 03/06/24 03/06/24 12:30 13:05 18:45 WBC (4.4-10.8) 10^3/uL 2.48 L RBC (3.93-5.22) 10^6/uL 3.69 L Hgb (11.2-15.7) g/dL 10.4 L D 10.1 L Hct (36.0-46.0) % 31.9 L 31.2 L MCV (80-95) fL 86 MCH (27.0-33.0) pg 28.2 MCHC (32.0-36.0) % 32.6 RDW (11.7-14.6) % 13.4 Plt Count (130-400) 10^3/uL 157 MPV (8.0-11.0) fL 9.9 Immature Gran % See Differential Neutrophils % % 52.0 Band Neutrophils % % 2 Lymphocytes % % 24.0 Atypical Lymphs % % 2 Monocytes % % 6.0 Eosinophils % % 12.0 Basophils % % 2.0 Nucleated RBC % (0.0-0.3) % 0.0 Absolute Neutrophils (1.2-6.7) 10^3/uL 1.34 Absolute Lymphocytes (1.2-3.4) 10^3/uL 0.64 L Absolute Monocytes (0.1-0.8) 10^3/uL 0.15 Absolute Eosinophils (0.0-0.7) 10^3/uL 0.30 Absolute Basophils (0.0-0.2) 10^3/uL 0.05 RBC Morphology Normal ESR (0-20) mm/hr 24 H VBG Lactate (0.6-1.4) mmol/L 1.0 Sodium (136-145) mmol/L 140 Potassium (3.5-5.1) mmol/L 3.9 Chloride (98-107) mmol/L 107 Carbon Dioxide (21.0-32.0) mmol/L 28.7 Anion Gap (3-11) mmol/L 4.3 BUN (7-18) mg/dL 13 Creatinine (0.55-1.02) mg/dL 1.0 Est GFR (CKD-EPI 2020) (mL/min/1.73m2) 75.81 Glucose (74-106) mg/dL 108 H Calcium (8.5-10.1) mg/dL 8.2 L Magnesium (1.8-2.4) mg/dL 1.4 L Total Bilirubin (0.2-1.0) mg/dL 0.14 L AST (15-37) U/L 10 L ALT (14-59) U/L 13 L Alkaline Phosphatase (46-116) U/L 59 Creatine Kinase (26-192) U/L 15 L Troponin I (< or =60) ng/L < 50 C-Reactive Protein (<or=0.5) mg/dL 0.60 H NT-Pro-B Natriuret Pep (<300) pg/mL 105 Total Protein (6.4-8.2) g/dL 6.2 L Albumin (3.4-5.0) g/dL 2.6 L Urine Color (Yellow) Yellow Urine Clarity (Clear) Clear Urine pH (5-8) 6.0 Ur Specific Cr[place]all (1.005-1.025) 1.020 Urine Protein (Neg-Trace) mg/dL 30 H Urine Ketones (Negative) mg/dL Negative Urine Blood (Negative) Moderate H Urine Nitrite (Negative) Negative Urine Bilirubin (Negative) Negative Urine Urobilinogen (Up to 0.2) mg/dL 0.2 Ur Leukocyte Esterase (Negative) Negative Urine RBC (0-2) HPF >50 H Urine WBC (0-5) HPF 0-2 Ur Epithelial Cells (Negative) HPF Moderate Urine Crystals (Negative) HPF Negative Urine Bacteria (Negative) HPF Few Urine Casts (Negative) LPF Negative Urine Mucus (Negative) Negative Ur Culture Indicated? No Urine Glucose (Negative) mg/dL Negative Urine Opiates Screen (Negative) Negative Urine Methadone Screen (Negative) Negative Ur Barbiturates Screen (Negative) Negative Ur Tricyclics Screen (Negative) Negative Ur Amphetamines Screen (Negative) Negative U Benzodiazepines Scrn (Negative) Negative Urine Cocaine Screen (Negative) Positive A Ur THC Screen (Negative) Negative Ethyl Alcohol (<10) mg/dL < 3.0 Quality:[facility] Health Related Social Needs: No Data to Display Sign Out Sign Out Data: Sign Out Comment: Here 48 hours ago for tooth abscess was placed on clindamycin at that time and had CT neck with contrast abdomen pelvis CT. 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 She is positive for cocaine on her UDS, echocardiogram done which is largely within normal limits with little bit of tricuspid and mitral valve regurgitation, Pending MRI brain and C-spine to eval cervical radiculopathy and rule out epidural abscess with, negative blood cultures 2 days ago. Also hypomagnesemia was given 1 g magnesium IV piggyback bolus. Was given 1000 mg calcium carbonate p.o. here and 10 mg of Flexeril p.o. Last updated by Jayda Mota NP at 03/06/24 15:34 Discharge Plan Disposition Patient Disposition: Home Condition: Stable Discharge Details Clinical Impression: Cervical radiculopathy, Hypomagnesemia, Anemia Primary Care Provider: None,None ED Provider: Cheikh Dunbar Home Meds and New Rx's Prescriptions: New ketorolac 10 mg tablet 10 mg PO QID PRN5 Days Qty: 20 0RF Rx Instructions: maximum total duration of 5 days from all oral, intranasal, or parenteral formulations cyclobenzaprine 10 mg tablet 10 mg PO TID PRNQty: 30 0RF magnesium 250 mg tablet 250 mg PO DAILY 10 Days Qty: 10 0RF Continued clindamycin HCl 300 mg capsule 300 mg PO TID 7 Days Qty: 21 0RF Discharge Instructions Instructions: Ketorolac (Systemic), Cyclobenzaprine, Magnesium Oxide, Normocytic Normochromic Anemia, Radiculopathy of the neck and back (including sciatica), Hypomagnesemia Additional Instructions: You were seen in the emergency department for your continued pain from your dental infection visit previously. You state you have weakness of your upper extremities and you do have a slight disc protrusion on your MRI of cervical spine that could explain your symptoms, you also have low magnesium which we repleted by IV magnesium and I am prescribing a supplements, this can contribute to global weakness and cramps. You also have anemia and you are on your period, this can also contribute to weakness. I have sent you a prescription for a muscle relaxer called cyclobenzaprine to help relax the neck muscles that are likely pinching the nerve of your neck, I have also sent a prescription strength anti-inflammatory, take this with Tylenol as well as magnesium supplements for 10 days, please follow-up with your primary care provider if having your magnesium level rechecked as well as your anemia. Please use topical [id number] lidocaine patches to the area of pain in your neck, perform gentle heat and gentle massage to the area. I am sending a referral for neurology for you, you may need to pursue getting in with an orthospine provider which we do not have here at this hospital. Please return to the emergency department for any severe increase in weakness, chest pain, palpitations, near syncope, visual changes, worsening weakness of upper extremities, fever. Referrals: [facility] [Provider Group]
[2024-03-06] MEDS: Gadoterate meglumine 20 ML SYRINGE IVP (15:50)
[2024-03-06 16:50] LABS: ESR 24 mm/hr (0-20)
[2024-03-06 17:04] LABS: Troponin I < 50 ng/L (< or =60)
[2024-03-06 17:10] LABS: NT-proBNP 105 pg/mL (<300)
[2024-03-06] MEDS: Normal Saline 1,000 ML 1000 ML IV (17:45)
[2024-03-06] MEDS: Ketorolac 15 MG/ML VIAL IVP (18:32)
[2024-03-06 18:58] LABS: HCT 31.2 % (36.0-46.0); HGB 10.1 g/dL (11.2-15.7)
[2024-03-06 19:14] VITALS: BP 126/79; PULSE 73; RESP 18; O2SAT 96
[2024-03-06 19:49] LABS: Procalcitonin < 0.1 ng/mL
[2024-03-06] MEDS: Cyclobenzaprine 10 MG TAB, 3 TABS/BTL PO (19:56)
--- NOTE | 2024-03-11 15:55 | NUR.NOTE ---
Nursing Note:Pt called to go over her labs from last Monday and Monday. I asked the provider to look and call her since most values were either low or high. I am not comfortable that I will be able to appropriately answer all of her questions. SHIRA, PRODUCT AMBASSADOR given her contact information, is going to review and contact the patient.
--- NOTE | 2024-03-11 16:27 | NUR.NOTE ---
Referral given to [place] [facility] weakness, w/o cord or column injury on MRI, cervical radiculopathy; 2 to 3 weeks. Nursing Note:
== END 2024-03-06 19:58 | disposition home or self-care (01) ==
PROVIDERS: Registered Nurse Emergency; Emergency Provider Physician Assistant
DX: M54.12 Radiculopathy, cervical region (principal); E83.42 Hypomagnesemia; D64.9 Anemia, unspecified; R52 Pain, unspecified; F14.10 Cocaine abuse, uncomplicated
CPT/HCPCS: 00123; 36415; 70553; 80053; 80307; 81025; 82550; 84145; 85652; 93005; 96361; 96365; 96375; 99284; 72156; 80320; 81003; 81015; 83605; 83735; 83880; 84484; 85014; 85018; 85025; 86140; 93010; 93306; 99283; J1885; J3475

== ENCOUNTER 2024-10-29 13:34 | Emergency (ER) | payer MEDICAID, SELFPAY ==
[2024-10-29 13:37] VITALS: BP 108/77; PULSE 100; RESP 14; TEMP 36.8; O2SAT 98
[2024-10-29] MEDS: Ondansetron O.D.T. 4 MG TABEF 8 MG PO (15:07)
[2024-10-29 16:06] LABS: Abs Immature Grans 0.01 10^3/uL (0.0-0.06); Absolute Basophil Count 0.02 10^3/uL (0.0-0.2); Absolute Eosinophil Count 0.03 10^3/uL (0.0-0.7); Absolute Lymphocyte Count 0.45 10^3/uL (1.2-3.4); Absolute Monocyte Count 0.34 10^3/uL (0.1-0.8); Absolute Neutrophil Count 2.58 10^3/uL (1.2-6.7); Basophils % 0.6 %; Eosinophils % 0.9 %; HCT 43.7 % (36.0-46.0); HGB 13.8 g/dL (11.2-15.7); Immature Grans % 0.3 %; Lymphocytes % 13.1 %; MCHC 31.6 % (32.0-36.0); MCV 89 fL (80-95); MPV 10.1 fL (8.0-11.0); Monocytes % 9.9 %; Neutrophils % 75.2 %; Platelet Count 198 10^3/uL (130-400); RBC 4.92 10^6/uL (3.93-5.22); RDW 13.8 % (11.7-14.6); RDW-SD 44.6 fL; WBC 3.43 10^3/uL (4.4-10.8)
[2024-10-29 16:29] LABS: ALT 27 U/L (14-59); AST 19 U/L (15-37); Albumin 3.9 g/dL (3.4-5.0); Alkaline Phosphatase 78 U/L (46-116); Anion Gap 8.9 mmol/L (3-11); BUN 18 mg/dL (7-18); Bilirubin, Total 0.4 mg/dL (0.2-1.0); CO2 28.1 mmol/L (21.0-32.0); CREATININE 0.9 mg/dL (0.55-1.02); Calcium 9.3 mg/dL (8.5-10.1); Chloride 101 mmol/L (98-107); Glucose 88 mg/dL (74-106); Lipase 40 U/L (<78); Magnesium 1.6 mg/dL (1.8-2.4); Sodium 138 mmol/L (136-145); Total Protein 8.4 g/dL (6.4-8.2)
[2024-10-29] MEDS: Ketorolac 15 MG/ML VIAL 7.5 MG IVP (16:42)
[2024-10-29 16:48] LABS: Bilirubin Small (Negative); Blood Trace-intact (Negative); Clarity Clear (Clear); Glucose Negative (Negative); Ketones 80 mg/dL (Negative); Leukocyte Esterase Negative (Negative); Nitrite Negative (Negative); Specific Gravity 1.025 (1.005-1.025); Urobilinogen 0.2 mg/dL (Up to 0.2)
[2024-10-29 16:57] LABS: RBC Negative HPF (0-2); WBC 0-2 HPF (0-5)
[2024-10-29 16:58] LABS: Bacteria Negative HPF (Negative); C & S Indicated? No/Sq. Contamination; Crystals Negative HPF (Negative); Epithelial Cells Few HPF (Negative); Mucus Negative (Negative)
[2024-10-29] MEDS: cefTRIAXone 500 MG VIAL IM (18:27)
[2024-10-29] MEDS: Lidocaine 1% Multi-Dose 50 ML VIAL (18:28)
[2024-10-29 18:29] VITALS: BP 108/77; PULSE 100; RESP 14; TEMP 36.8; O2SAT 98
--- NOTE | 2024-10-29 20:55 | W.ED.GENAD ---
Discharge Plan Disposition Patient Disposition: Home Discharge Details Clinical Impression: Nausea vomiting and diarrhea, Trichomonal cystitis Primary Care Provider: None,None ED Provider: Amairani George Home Meds and New Rx's Prescriptions: New doxycycline monohydrate 100 mg capsule 100 mg PO BID Qty: 14 0RF metronidazole 500 mg tablet 500 mg PO BID 7 Days Qty: 14 0RF ondansetron HCl 4 mg tablet 4 mg PO Q8H 4 Days Qty: 12 0RF magnesium 250 mg tablet 250 mg PO DAILY Qty: 7 0RF Discharge Instructions Instructions: Trichomoniasis (DC), Diarrhea, Adult ED, Sexually Transmitted Infections ED, Nausea and vomiting in adults Additional Instructions: Take the antibiotics as prescribed you have trichomonas in your urine and will need to be treated as an STD, your gonorrhea and Chlamydia test are pending we will notify you if you are positive but you have been treated All of your partners should be tested for STDs and you should not engage in any intercourse until you are retested and negative and your partners treated You may take Imodium as needed for diarrhea but be cautious with this as it can also make you constipated Take Zofran as needed for nausea and vomiting clear liquid diet do not begin the antibiotics until you are able to tolerate p.o. and please return earlier should you have new or worsening complaints including fever, chills, worsening pain Discharge Data Discharge Date/Time-TO BE ENTERED AT DEPARTURE: 10/29/24 18:25 HPI General Date/Time Provider Initiated Documentation: 10/29/24 14:00. HPI Narrative: 34-year-old female with nausea, vomiting, diarrhea, and abdominal cramping. No fever or . Coworker diagnosed with norovirus. Related Data Home Medications ?Medication ?Instructions ?Recorded ?Confirmed doxycycline monohydrate 100 mg 100 mg PO BID #14 caps 10/29/24 capsule magnesium 250 mg tablet 250 mg PO DAILY #7 tabs 10/29/24 metronidazole 500 mg tablet 500 mg PO BID 7 days #14 tabs 10/29/24 ondansetron HCl 4 mg tablet 4 mg PO Q8H 4 days #12 tabs 10/29/24 Previous Rx's ?Medication ?Instructions ?Recorded doxycycline monohydrate 100 mg 100 mg PO BID #14 caps 10/29/24 capsule magnesium 250 mg tablet 250 mg PO DAILY #7 tabs 10/29/24 metronidazole 500 mg tablet 500 mg PO BID 7 days #14 tabs 10/29/24 ondansetron HCl 4 mg tablet 4 mg PO Q8H 4 days #12 tabs 10/29/24 Allergies Allergy/AdvReac Type Severity Reaction Status Date / Time codeine (Codeine) Allergy Severe THROAT Verified 10/29/24 13:44 SWELLS, TROUBLE BREATHING oxycodone AdvReac Intermediate Nausea Verified 10/29/24 13:44 General Stated Complaint: Abd Prob JEANNINE: 3 Exam Narrative Exam Narrative: General Appearance: Alert, oriented, no acute distress. Vital signs: Within normal limits. HEENT: Within normal limits. Respiratory: Lungs clear. Cardiovascular: Regular cardiac rate and rhythm. Gastrointestinal: Mild diffuse abdominal tenderness without focal tenderness. Skin: No rashes or lesions. Neurological: Normal. Course Vital Signs Vital signs: Vital Signs Temperature 36.8 C 10/29/24 13:37 Pulse 100 H 10/29/24 13:37 Respiratory Rate 14 10/29/24 13:37 Blood Pressure 108/77 10/29/24 13:37 Pulse Oximetry 98 10/29/24 13:37 Temperature 36.8 C 10/29/24 18:29 Temperature Source Oral 10/29/24 18:29 Pulse 100 H 10/29/24 18:29 Respiratory Rate 14 10/29/24 18:29 Blood Pressure 108/77 10/29/24 18:29 Blood Pressure Position Sitting 10/29/24 18:29 Pulse Oximetry 98 10/29/24 18:29 Oxygen Delivery Method Room Air 10/29/24 18:29 Oxygen Flow Rate 0 10/29/24 18:29 Pain Level 8 10/29/24 18:29 Lab/Test Results Lab/Test Results: Laboratory Tests Range/Units 10/29/24 10/29/24 15:45 15:50 WBC (4.4-10.8) 10^3/uL 3.43 L RBC (3.93-5.22) 10^6/uL 4.92 Hgb (11.2-15.7) g/dL 13.8 Hct (36.0-46.0) % 43.7 MCV (80-95) fL 89 MCH (27.0-33.0) pg 28.0 MCHC (32.0-36.0) % 31.6 L RDW (11.7-14.6) % 13.8 Plt Count (130-400) 10^3/uL 198 MPV (8.0-11.0) fL 10.1 Immature Gran % % 0.3 Neutrophils % % 75.2 Lymphocytes % % 13.1 Monocytes % % 9.9 Eosinophils % % 0.9 Basophils % % 0.6 Nucleated RBC % (0.0-0.3) % 0.0 Absolute Neutrophils (1.2-6.7) 10^3/uL 2.58 Absolute Lymphocytes (1.2-3.4) 10^3/uL 0.45 L Absolute Monocytes (0.1-0.8) 10^3/uL 0.34 Absolute Eosinophils (0.0-0.7) 10^3/uL 0.03 Absolute Basophils (0.0-0.2) 10^3/uL 0.02 Sodium (136-145) mmol/L 138 Potassium (3.5-5.1) mmol/L 4.0 Chloride (98-107) mmol/L 101 Carbon Dioxide (21.0-32.0) mmol/L 28.1 Anion Gap (3-11) mmol/L 8.9 BUN (7-18) mg/dL 18 Creatinine (0.55-1.02) mg/dL 0.9 Est GFR (CKD-EPI 2020) (mL/min/1.73m2) 85.50 Glucose (74-106) mg/dL 88 Calcium (8.5-10.1) mg/dL 9.3 Magnesium (1.8-2.4) mg/dL 1.6 L Total Bilirubin (0.2-1.0) mg/dL 0.4 AST (15-37) U/L 19 ALT (14-59) U/L 27 Alkaline Phosphatase (46-116) U/L 78 Total Protein (6.4-8.2) g/dL 8.4 H Albumin (3.4-5.0) g/dL 3.9 Lipase (<78) U/L 40 Urine Color (Yellow) Yellow Urine Clarity (Clear) Clear Urine pH (5-8) 6.0 Ur Specific [place] (1.005-1.025) 1.025 Urine Protein (Neg-Trace) mg/dL 30 H Urine Ketones (Negative) mg/dL 80 H Urine Blood (Negative) Trace-intact H Urine Nitrite (Negative) Negative Urine Bilirubin (Negative) Small H Urine Urobilinogen (Up to 0.2) mg/dL 0.2 Ur Leukocyte Esterase (Negative) Negative Urine RBC (0-2) HPF Negative Urine WBC (0-5) HPF 0-2 Ur Epithelial Cells (Negative) HPF Few Urine Crystals (Negative) HPF Negative Urine Bacteria (Negative) HPF Negative Urine Mucus (Negative) Negative Urine Other (Negative) Few Trichomonas Ur Culture Indicated? No/Sq. Contamination Urine Glucose (Negative) mg/dL Negative POC- Test(urine) Negative Medical Decision Making Mild leukopenia (3.43). Chemistry normal. Negative test. Urinalysis: no UTI, positive for trichomonas. Initial Assessment: 34-year-old female with nausea, vomiting, diarrhea, and abdominal cramping. Denies fever and . Mild diffuse tenderness on abdominal exam. No acute distress. Alert and oriented. Mild leukopenia, chemistry within normal limits, negative test, urinalysis negative for UTI but positive for trichomonas. Differential Diagnosis: - Norovirus: Considered due to coworker's infection. No fever. Plan: Symptomatic treatment. - Trichomonas infection: Positive urinalysis. Plan: Treat with Flagyl 500 mg BID for 7 days, starting tomorrow. - Suspected STIs: New partner. Plan: Order GC and chlamydia tests. Empirical treatment with ceftriaxone 500 mg IM and doxycycline 100 mg BID for 10 days. Inform partner, abstain from intercourse until cleared. ED Course: - Labs: Mild leukopenia (3.43), chemistry within normal limits, negative test, urinalysis negative for UTI, positive for trichomonas. - Treatment: Flagyl 500 mg BID for 7 days for trichomonas, ceftriaxone 500 mg IM and doxycycline 100 mg BID for 10 days for suspected STIs. - Patient education: Informed about STIs, advised to inform partner and abstain from intercourse until cleared. - Discharge: Patient tolerating oral intake, discharged home in stable condition with stable vitals. Return precautions reviewed. Final Assessment: Patient with trichomonas infection and suspected STIs, treated empirically. Nausea, vomiting, and diarrhea managed symptomatically. Discharged in stable condition. Clinical Impression: - Trichomonas infection - Suspected STIs - Nausea, vomiting, diarrhea Disposition: - Discharge: Home in stable condition. - Follow-Up: Inform partner, abstain from intercourse until cleared. MDM Components Evaluation: - Number of Differential Diagnoses or Management Options: Norovirus, trichomonas infection, suspected STIs. - Amount and Complexity of Data Reviewed: Labs (leukopenia, chemistry, test, urinalysis), empirical treatment for STIs. - Risk of Complication and Morbidity or Mortality: Low risk with appropriate treatment and follow-up. Quality:[facility] Health Related Social Needs: No Data to Display PFSH All Active Problems (Updated 05/07/20 @ 14:01 by Dionne Cline MD) Trichomonal cystitis (Acute) Nausea vomiting and diarrhea (Acute) Abnormal Pap smear of cervix (Acute) 2019. LGSIL. 05/2021:Colpo directed bx. Menses, irregular (Acute) Postcoital bleeding (Acute) History of cholecystectomy (Chronic) Tobacco use (Acute) Heavy menstrual bleeding (Acute) Gallstone pancreatitis (Acute 07/18/14) Asthma (Chronic) H/O surgical procedure (Chronic) a. for breech presentation 06/2014 Medical History (Updated 10/29/24 @ 17:28 by EPHRAIM Modi) Asthma Seasonal allergic rhinitis uses inhaler Migraine Surgical History (Updated 05/07/20 @ 14:01 by Dionne Cline MD) section (06/18/14) LTCS/aoc. IOL for post dates at 40w4d breech presentation noted in labor. F. 6lb 7.9oz. 'Sujata'. Family History (Updated 05/07/20 @ 13:50 by Dionne Cline MD) Mother No problems noted. Other Personal history of malignant neoplasm Social History (Updated 05/07/20 @ 13:54 by Dionne Cline MD) Smoking/Tobacco Use Status: Current every day Tobacco Type: cigarettes Smoking risk assessment performed?: Yes Alcohol Intake: current Alcohol Intake frequency: holidays/special occasions only Drug use: Occasionally Substance use type: marijuana Household members: significant other, children and other Details: BF-Jake. 2 sons. D-Sujata Housing: apartment Number of Children: 3 current occupation: Private care in remission Do you feel safe at home: Yes Do you feel safe in your relationship?: Yes Female Reproductive History Menstrual Duration of menses: 6-7 days (Patient reports heavy with associated cramping) control method: permanent sterilization (BTL at time of delivery) History History 5 Para 3 Hx # Term Pregnancies 3 Multiple births Hx # Pregnancies Ectopic pregnancies AB induced Hx Number of Living Children 3 AB spontaneous 2
[2024-10-31 11:56] LABS: Chlamydia Result Negative (Negative); GC Result Negative (Negative)
== END 2024-10-29 18:25 | disposition home or self-care (01) ==
PROVIDERS: Registered Nurse Emergency; Emergency Provider Physician Assistant
DX: R11.2 Nausea with vomiting, unspecified (principal); R19.7 Diarrhea, unspecified; A59.03 Trichomonal cystitis and urethritis; F17.210 Nicotine dependence, cigarettes, uncomplicated
CPT/HCPCS: 80053; 81025; 83690; 87491; 87591; 96372; 96374; 99284; 81003; 81015; 83735; 85025; J0696; J1885; J2003; J2004

== ENCOUNTER 2025-04-21 07:50 | Emergency (ER) | payer MEDICAID, SELFPAY ==
[2025-04-21 07:54] VITALS: BP 129/67; PULSE 87; RESP 18; TEMP 36.6; O2SAT 100
--- NOTE | 2025-04-21 08:00 | DI.US_ITS ---
Exam(s) US PELVIS TRANSVAGINAL EXAM: US PELVIS TRANSVAGINAL CLINICAL HISTORY: dyspareunia, bleeding, alejandro 1 4y ago, no f/u TECHNIQUE: Ultrasound of the pelvis was performed both transabdominal and transvaginal. COMPARISON: CT CT ABDOMEN PELVIS W from 03/04/2024 FINDINGS: UTERUS: Nongravid and anteverted Measures 9.5 cm length x 4.4 cm AP x 5.5 cm wide. There are no uterine fibroids. scar is noted in the anterior myometrium. Endometrial thickness measures 7 mm. There is no fluid in the endometrial canal. CERVIX: Small nabothian cyst. RIGHT OVARY: Measures 0.9 x 1.8 x 1.9 cm There is a small probable hemorrhagic cyst measuring 1.5 x 1.0 x 1.1 cm. This is in addition to other sub cm follicles. LEFT OVARY: Measures 2.7 x 1.8 x 1.8 cm Contains sub cm follicular cysts. CUL-DE-SAC: No free fluid evident. IMPRESSION: 1. scar noted in the anterior myometrium. No uterine fibroids. No abnormal findings in the endometrial cavity. 2. There is a 15 x 10 x 11 mm hemorrhagic cyst in the right ovary. 3. No extraovarian adnexal masses and no free fluid evident. DATA REPOSITORY:
[2025-04-21 08:46] LABS: Abs Immature Grans 0.01 10^3/uL (0.0-0.06); HCT 36.3 % (36.0-46.0); HGB 11.8 g/dL (11.2-15.7); Immature Grans % 0.2 %; MCH 28.4 pg (27.0-33.0); MCHC 32.5 % (32.0-36.0); MCV 88 fL (80-95); MPV 9.6 fL (8.0-11.0); Platelet Count 248 10^3/uL (130-400); RBC 4.15 10^6/uL (3.93-5.22); RDW 13.7 % (11.7-14.6); RDW-SD 43.8 fL; WBC 4.21 10^3/uL (4.4-10.8)
[2025-04-21 09:04] LABS: ALT 15 U/L (14-59); AST 15 U/L (15-37); Albumin 3.7 g/dL (3.4-5.0); Alkaline Phosphatase 61 U/L (46-116); Anion Gap 5.9 mmol/L (3-11); BUN 11 mg/dL (7-18); Bilirubin, Total 0.3 mg/dL (0.2-1.0); CO2 29.1 mmol/L (21.0-32.0); Calcium 9.1 mg/dL (8.5-10.1); Chloride 102 mmol/L (98-107); Estimated GFR 98.48 (mL/min/1.73m2); Glucose 87 mg/dL (74-106); Potassium 4.0 mmol/L (3.5-5.1); Sodium 137 mmol/L (136-145); Total Protein 7.6 g/dL (6.4-8.2)
[2025-04-21 09:20] VITALS: BP 117/89; PULSE 70; RESP 16; O2SAT 100
[2025-04-21 09:33] LABS: Glucose Negative (Negative)
[2025-04-21 09:46] LABS: C & S Indicated? No; WBC Negative HPF (0-5)
[2025-04-21 10:41] VITALS: BP 118/76; PULSE 71; RESP 16; TEMP 36.7; O2SAT 100
--- NOTE | 2025-04-21 12:12 | W.ED.GENAD ---
Discharge Plan Disposition Patient Disposition: Home Discharge Details Clinical Impression: Hemorrhagic ovarian cyst, Colposcopy needed after cervical smear Primary Care Provider: None,None ED Provider: Amairani George Home Meds and New Rx's Prescriptions: Continued magnesium 250 mg tablet 250 mg PO DAILY Qty: 7 0RF Discharge Instructions Instructions: Ovarian Cyst ED Additional Instructions: please follow-up with driver's license reviewing officer and have them review your colposcopy results, it sounds like you need another referral to [facility] you have a hemorrhagic ovarian cyst and this can cause pain and vaginal bleeding you may take motrin and tyleno las needed for pain philipp placed you on the list to establish with primary care physician should you develop worsening pain, fever, or should any new concerns arise Referrals: Yessenia Jerry MD [ [facility] STAFF PHYSICIAN, Obstetrics] HPI General Date/Time Provider Initiated Documentation: 04/21/25 07:59. HPI Narrative: This 34-year-old female presents with spotting after intercourse for the past week then developing heavy bleeding after intercourse this morning. Denies any fever or chills. Denies any chance of . denies flank pain. states had an abnormal colposcopy 4 years ago and was referred to [facility], but was scared and didn't follow-up . sexually active and monogamous. Related Data Home Medications ?Medication ?Instructions ?Recorded ?Confirmed magnesium 250 mg tablet 250 mg PO DAILY #7 tabs 10/29/24 04/21/25 Previous Rx's ?Medication ?Instructions ?Recorded magnesium 250 mg tablet 250 mg PO DAILY #7 tabs 10/29/24 Allergies Allergy/AdvReac Type Severity Reaction Status Date / Time codeine (Codeine) Allergy Severe THROAT Verified 04/21/25 07:58 SWELLS, TROUBLE BREATHING oxycodone AdvReac Intermediate Nausea Verified 04/21/25 07:58 General Stated Complaint: PROVISIONING ANALYST JEANNINE: 3 Exam Narrative Exam Narrative: Tearful alert, oriented female in no acute distress suprapubic tenderness which is mild scant coagulated blood in vaginal vault no cervical motion tenderness no rashes or lesions no rebound or guarding on abdominal exam no CVA tenderness Course Vital Signs Vital signs: Vital Signs Temperature 36.6 C 04/21/25 07:54 Pulse 87 04/21/25 07:54 Respiratory Rate 18 04/21/25 07:54 Blood Pressure 129/67 04/21/25 07:54 Pulse Oximetry 100 04/21/25 07:54 Temperature 36.7 C 04/21/25 10:41 Temperature Source Oral 04/21/25 07:54 Pulse 71 04/21/25 10:41 Respiratory Rate 16 04/21/25 10:41 Respiratory Effort Normal 04/21/25 09:20 Respiratory Depth Normal 04/21/25 09:20 Respiratory Pattern Normal 04/21/25 09:20 Blood Pressure 118/76 04/21/25 10:41 Blood Pressure Mean 98 04/21/25 09:20 Blood Pressure Position Sitting 04/21/25 09:20 Pulse Oximetry 100 04/21/25 10:41 Oxygen Delivery Method Room Air 04/21/25 09:20 Oxygen Flow Rate 0 04/21/25 09:20 Lab/Test Results Lab/Test Results: 04/21/25 10:27 Vaginal Vaginitis Screen - Final Laboratory Tests Range/Units 04/21/25 04/21/25 08:38 09:13 WBC (4.4-10.8) 10^3/uL 4.21 L RBC (3.93-5.22) 10^6/uL 4.15 Hgb (11.2-15.7) g/dL 11.8 Hct (36.0-46.0) % 36.3 MCV (80-95) fL 88 MCH (27.0-33.0) pg 28.4 MCHC (32.0-36.0) % 32.5 RDW (11.7-14.6) % 13.7 Plt Count (130-400) 10^3/uL 248 MPV (8.0-11.0) fL 9.6 Immature Gran % % 0.2 Neutrophils % % 54.6 Lymphocytes % % 28.5 Monocytes % % 10.2 Eosinophils % % 5.5 Basophils % % 1.0 Nucleated RBC % (0.0-0.3) % 0.0 Absolute Neutrophils (1.2-6.7) 10^3/uL 2.30 Absolute Lymphocytes (1.2-3.4) 10^3/uL 1.20 Absolute Monocytes (0.1-0.8) 10^3/uL 0.43 Absolute Eosinophils (0.0-0.7) 10^3/uL 0.23 Absolute Basophils (0.0-0.2) 10^3/uL 0.04 Sodium (136-145) mmol/L 137 Potassium (3.5-5.1) mmol/L 4.0 Chloride (98-107) mmol/L 102 Carbon Dioxide (21.0-32.0) mmol/L 29.1 Anion Gap (3-11) mmol/L 5.9 BUN (7-18) mg/dL 11 Creatinine (0.55-1.02) mg/dL 0.8 Est GFR (CKD-EPI 2020) (mL/min/1.73m2) 98.48 Glucose (74-106) mg/dL 87 Calcium (8.5-10.1) mg/dL 9.1 Total Bilirubin (0.2-1.0) mg/dL 0.3 AST (15-37) U/L 15 ALT (14-59) U/L 15 Alkaline Phosphatase (46-116) U/L 61 Total Protein (6.4-8.2) g/dL 7.6 Albumin (3.4-5.0) g/dL 3.7 Urine Color (Yellow) Yellow Urine Clarity (Clear) Clear Urine pH (5-8) 7.0 Ur Specific [place] (1.005-1.025) 1.015 Urine Protein (Neg-Trace) mg/dL Negative Urine Ketones (Negative) mg/dL Negative Urine Blood (Negative) Large H Urine Nitrite (Negative) Negative Urine Bilirubin (Negative) Negative Urine Urobilinogen (Up to 0.2) mg/dL 0.2 Ur Leukocyte Esterase (Negative) Negative Urine RBC (0-2) HPF 10-20 H Urine WBC (0-5) HPF Negative Ur Epithelial Cells (Negative) HPF Few Urine Crystals (Negative) HPF Negative Urine Bacteria (Negative) HPF Rare Urine Casts (Negative) LPF Negative Urine Mucus (Negative) Negative Ur Culture Indicated? No Urine Glucose (Negative) mg/dL Negative POC- Test(urine) Negative Medical Decision Making Results: Palgic pelvic ultrasound shows right ovarian cyst which is likely hemorrhagic per radiology interpretation my review CBC is CMP and labs do not show acute abnormality aside from red blood cells in urine consistent with vaginal bleeding likely will need repeat urinalysis in the next several weeks I suspect patient's bleeding is precipitated by the hemorrhagic cyst she is encouraged to follow-up with PROVISIONING ANALYST regarding this cyst to be sure that it resolves. 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 She will likely need another referral to [facility] so I have referred her back to PROVISIONING ANALYST for reassessment at our facility. She will take Motrin and Tylenol as needed for pain and return earlier should she have new or worsening complaints. She states she has been previously tested for STDs but I did order GC chlamydia and vaginosis panel for additional assessment. Discharged in stable condition with stable vitals will need close outpatient follow-up PFSH All Active Problems (Updated 05/07/20 @ 14:01 by Dionne Cline MD) Colposcopy needed after cervical smear (Acute) Hemorrhagic ovarian cyst (Acute) Abnormal Pap smear of cervix (Acute) 2019. LGSIL. 05/2021:Colpo directed bx. Menses, irregular (Acute) Postcoital bleeding (Acute) History of cholecystectomy (Chronic) Tobacco use (Acute) Heavy menstrual bleeding (Acute) Gallstone pancreatitis (Acute 07/18/14) Asthma (Chronic) H/O surgical procedure (Chronic) a. for breech presentation 06/2014 Medical History (Updated 04/21/25 @ 10:18 by EPHRAIM Modi) Asthma Seasonal allergic rhinitis uses inhaler Migraine Surgical History (Updated 05/07/20 @ 14:01 by Dionne Cline MD) section (06/18/14) LTCS/aoc. IOL for post dates at 40w4d breech presentation noted in labor. F. 6lb 7.9oz. 'Sujata'. Family History (Updated 05/07/20 @ 13:50 by Dionne Cline MD) Mother No problems noted. Other Personal history of malignant neoplasm Social History (Updated 05/07/20 @ 13:54 by Dionne Cline MD) Smoking/Tobacco Use Status: Current every day Tobacco Type: cigarettes Smoking risk assessment performed?: Yes Alcohol Intake: current Alcohol Intake frequency: holidays/special occasions only Drug use: Daily Substance use type: marijuana Household members: significant other, children and other Details: BF-Jake. 2 sons. D-Sujata Housing: apartment Number of Children: 3 current occupation: Private care in remission Do you feel safe at home: Yes Do you feel safe in your relationship?: Yes Female Reproductive History Menstrual Duration of menses: 6-7 days (Patient reports heavy with associated cramping) control method: permanent sterilization (BTL at time of delivery) History History 5 Para 3 Hx # Term Pregnancies 3 Multiple births Hx # Pregnancies Ectopic pregnancies AB induced Hx Number of Living Children 3 AB spontaneous 2
== END 2025-04-21 10:41 | disposition home or self-care (01) ==
PROVIDERS: Emergency Provider Physician Assistant
DX: N93.0 Postcoital and contact bleeding (principal); N83.291 Other ovarian cyst, right side
CPT/HCPCS: 99283; 99284; 81025; 36415; 80053; 87491; 87591; 76830; 76856; 81003; 81015; 85025; 87480; 87510; 87660

== ENCOUNTER 2025-04-23 11:23 | Outpatient (REF) | payer MEDICAID, SELFPAY ==
--- NOTE | 2025-04-23 11:30 | PAPFT_PTH ---
PATIENT: Ginny Jacobs LOC: [facility] U#:[id number] AGE/SX: 34/F ROOM: RE04/23/[address]: Yessenia Jerry MD : 1990 BED: DIS: 04/23/2025 SPEC #: [id number] RECD: 04/23/25 17:56 STATUS: TERESITA REJarrod #: [id number] RUPA: 04/23/25 11:[address]: Yessenia Jerry DEPT: [facility] Cytology RECD BY: Amairani Mckeon ENTERED: 04/23/25 17:56 SP TYPE: PAPFT OTHR DR: None Tissues: 1 - CX/ENDOCX FOR PAP SMEARS Procedures: PAP THIN PREP/UVM Screening HPV DNA PROBE Comments: [id number] (HPV 16 & 18/45) (CHLAMYDIA/GC)
[2025-04-24 11:19] LABS: Chlamydia Result Negative (Negative); GC Result Negative (Negative)
== END 2025-04-23 11:24 | disposition home or self-care (01) ==
LOC: LBN 11:23
PROVIDERS: Visit Provider Obstetrics & Gynecology
DX: Z12.4 Encounter for screening for malignant neoplasm of cervix (principal)
CPT/HCPCS: 87491; 87591; 88142; 87624

== ENCOUNTER 2025-05-08 11:25 | Outpatient (REF) | payer MEDICAID, SELFPAY ==
--- NOTE | 2025-05-08 11:10 | CER_PTH ---
PATIENT: Ginny Jacobs LOC: [facility] U#:[id number] AGE/SX: 34/F ROOM: RE05/08/[address]: Yessenia Jerry MD : 1990 BED: DIS: 05/08/2025 SPEC #: [id number] RECD: 05/08/25 16:45 STATUS: TERESITA REQ #: [id number] RUPA: 05/08/25 11:[address]: Yessenia Jerry DEPT: Surgical Specimen RECD BY: Amairani Mckeon ENTERED: 05/08/25 16:46 SP TYPE: GM FRANK DR: Unknown,Unknown Tissues: 1 - CERVICAL BIOPSY 2 - ENDOMETRIUM BX/CURRETTE Procedures: GROSS AND MICRO LEVEL 4 Comments: [id number]
== END 2025-05-08 11:26 | disposition home or self-care (01) ==
LOC: LBN 11:25
PROVIDERS: Visit Provider Obstetrics & Gynecology
DX: R87.612 Low grade squamous intraepithelial lesion on cytologic smear of cervix (LGSIL) (principal); N93.0 Postcoital and contact bleeding
CPT/HCPCS: 88305

== ENCOUNTER 2025-05-23 03:10 | Outpatient (CLI) | payer MEDICAID, SELFPAY ==
--- NOTE | 2025-05-23 05:45 | DI.US_ITS ---
Exam(s) US PELVIS TRANSVAGINAL EXAM: US PELVIS TRANSVAGINAL CLINICAL HISTORY: postcoital bleeding,n93.0. TECHNIQUE: Transabdominal and transvaginal pelvic ultrasound was performed using standard protocol. COMPARISON: US US PELVIS TRANSVAGINAL from 04/21/2025 FINDINGS: UTERUS: Position: Anteverted. Size: 8.6 long by 4.7 AP by 5.2 transverse cm Endometrium: 1.2 cm. Normal for patient's menstrual status. Myometrium: Unremarkable. Cervix: Unremarkable. OVARIES: Right: 2.0 x 1.9 x 1.6 cm Cyst or mass: No suspicious cystic or solid masses. Left: 3.0 x 2.4 x 1.9 cm Cyst or mass: No suspicious cystic or solid masses. DOPPLER: Color: Symmetric and uniform flow to both ovaries. CUL-DE-SAC: Free fluid: None. Other: None. IMPRESSION: 1. Normal-appearing uterus with endometrial stripe within normal limits. 2. Unremarkable bilateral ovaries. DATA REPOSITORY:
== END 2025-05-23 03:30 ==
LOC: DI 03:10
PROVIDERS: Visit Provider Obstetrics & Gynecology
DX: N93.0 Postcoital and contact bleeding (principal)
CPT/HCPCS: 76830; 76856